=== PATIENT | male | born 1950 | race Caucasian/White ===

== ENCOUNTER 2018-03-29 16:20 | Inpatient (IN) | payer MEDICARE ==
[2018-03-29 19:09] VITALS: BMI 24.0
[2018-03-29] MEDS ORDERED: Oxycodone/Acetaminophen 5/325 mg Tab PO PRN (22:07)
[2018-03-29] MEDS ORDERED: Patient's Own Med (Atorvastatin [Lipitor] 80 MG) PO SCH (22:30)
[2018-03-29] MEDS ORDERED: Albuterol-Ipratrop 3 mg / 0.5 (3 ml) UD INH PRN (22:33)
[2018-03-29] MEDS: Insulin Lispro (humaLOG) 100 Units/ml Inj SC SCH (23:45)
[2018-03-30] MEDS ORDERED: Albuterol-Ipratrop 3 mg / 0.5 (3 ml) UD INH PRN (04:39)
[2018-03-30] MEDS: Oxycodone/Acetaminophen 5/325 mg Tab PO PRN (04:47)
[2018-03-30 06:22] LABS: HEMOGLOBIN 12.4 g/dL (12.0-18.0); MEAN CELL VOLUME 87.7 fl (80.0-94.0); MEAN CORPUSCULAR HEMOGLOBIN 29.8 pg (27.0-31.0); MEAN CORPUSCULAR HGB CONC 33.9 g/dL (33.0-37.0); RBC 4.17 Mil/uL (4.40-5.90); RED CELL DISTRIBUTION WIDTH 15.1 % (11.5-14.5); WHITE BLOOD COUNT 12.4 K/uL (4.8-10.8)
[2018-03-30 06:35] LABS: ALBUMIN 3.4 g/dL (3.5-5.0); ALT/SGPT 94 U/L (21-72); AST/SGOT 78 U/L (17-59); BLOOD UREA NITROGEN 23 mg/dl (9-20); GFR NON-AFRICAN AMERICAN > 60; HDL CHOLESTEROL 20 MG/DL (30-70)
[2018-03-30 06:46] LABS: LDL CHOLESTEROL 49 mg/dL (0-129)
[2018-03-30] MEDS: Insulin Lispro (humaLOG) 100 Units/ml Inj SC SCH ×2 (07:18→12:05)
[2018-03-30] MEDS: Pantoprazole 40 mg EC Tab PO SCH (07:22)
[2018-03-30] MEDS ORDERED: Patient's Own Med (Multivitamin [Daily Vite] 1 TAB) PO SCH (09:00)
[2018-03-30] MEDS: Multivitamin With Minerals Tab PO SCH (09:14)
--- NOTE | 2018-03-30 13:52 | PCM.OPOC ---
Physiatry Overall Plan of Care - Overall Plan of Care Estimated Length of Stay in Weeks: 2 Rehab Impairment: Mobility, Gait, Balance, Coordination Etiologic Diagnosis: Cerebrovascular Accident (and CABG x3 and PPM) Rehab/Medical Prognosis: Fair - Anticipated Interventions Physical Therapy:: Yes Occupational Therapy:: Yes Recreational Therapy:: Yes - Therapy Goals Bed Mobility: Supervision Ambulation: Supervision Functional Positional Changes:: Supervision - Discharge Plan Identification of Barriers to Discharge: Home Situation Discharge Destination: Home
--- NOTE | 2018-03-30 13:54 | CP.PCM.CON ---
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 acute rehab following an admission with chest pain. [place] [facility] developed right LE weakness and imaging revealed multiple infarcts. Also noted was a liver mass which will need to be evaluated as an outpatient after therapies. He is right hand dominant and was previously independent. Supportive family. Was a smoker Review of Systems - Constitutional Constitutional: absent: Anorexia, Chills - EENT Eyes: absent: Change in Vision Ears: absent: Ear Discharge, Ear Pain Nose/Mouth/Throat: absent: Nasal Congestion - Cardiovascular Cardiovascular: Chest Pain (from surgery) - Respiratory Respiratory: absent: Dyspnea - Gastrointestinal Gastrointestinal: absent: Belching, Constipation - Musculoskeletal Musculoskeletal: absent: Back Pain - Integumentary Integumentary: absent: Bleeding Lesions - Neurological Neurological: absent: Abnormal Movements, Disequilibrium, Headaches, Radicular Pain, Vertigo - Psychiatric Psychiatric: absent: Anxiety Past Patient History - Past Medical History & Family History Past Medical History?: Yes - Past Social History Smoking Status: Light Smoker < 10 Cigarettes Daily Home Situation {Lives}: With Family (20 steps) - CARDIAC Hx Cardiac Disorders: Yes Hx Hypertension: Yes Other/Comment: hyperlipidemia - PULMONARY Hx Respiratory Disorders: No - NEUROLOGICAL Hx Neurological Disorder: Yes HX Cerebrovascular Accident: Yes - HEENT Hx HEENT Problems: Yes Other/Comment: uses eyeglasses for reading - RENAL Hx Chronic Kidney Disease: No - ENDOCRINE/METABOLIC Hx Endocrine Disorders: Yes Other/Comment: DM type 2-Borderline- just found out in [facility] - HEMATOLOGICAL/ONCOLOGICAL Hx Blood Disorders: No Hx AIDS: No Hx Human Immunodeficiency Virus (HIV): No - INTEGUMENTARY Hx Dermatological Problems: No - MUSCULOSKELETAL/RHEUMATOLOGICAL Hx Musculoskeletal Disorders: No Hx Falls: No - GASTROINTESTINAL Hx Gastrointestinal Disorders: Yes Other/Comment: Liver Mass Lesion(unclear etiology)-identified in [facility] on Abdominal Ultrasound - GENITOURINARY/GYNECOLOGICAL Hx Genitourinary Disorders: No - PSYCHIATRIC Hx Psychophysiologic Disorder: No Hx Substance Use: No - SURGICAL HISTORY Hx Surgeries: Yes Hx Cholecystectomy: Yes (2012) Other/Comment: pacemaker insertion-03/25/2018. extubated 03/20/2018 - ANESTHESIA Hx Anesthesia: Yes Hx Anesthesia Reactions: No Hx Malignant Hyperthermia: No Meds Allergies/Adverse Reactions: Allergies Allergy/AdvReac Type Severity Reaction Status Date / Time No Known Allergies Allergy Verified 03/29/18 16:54 - Medications Medications: Current Medications Acetaminophen (Tylenol 325mg Tab) 650 mg PO Q6 PRN PRN Reason: pain,scale 4-6 Albuterol/Ipratropium (Duoneb 3 Mg/0.5 Mg (3 Ml) Ud) 3 ml INH RQ6 PRN PRN Reason: forshortnessof breath/wheezing Apixaban (Eliquis) 5 mg PO BID [facility] PRN Reason: Protocol Last Admin: 03/30/18 09:13 Dose: 5 mg Ascorbic Acid (Vitamin C 500 Mg Tab) 500 mg PO BID [facility] Last Admin: 03/30/18 09:14 Dose: 500 mg Aspirin (Ecotrin) 81 mg PO DAILY [facility] Last Admin: 03/30/18 09:13 Dose: 81 mg Atorvastatin Calcium (Lipitor) 80 mg PO HS [facility] Last Admin: 03/29/18 23:13 Dose: 80 mg Bisacodyl (Dulcolax) 10 mg RC DAILY PRN PRN Reason: Constipation Docusate Sodium (Colace) 100 mg PO BID [facility] Levothyroxine Sodium (Synthroid) 50 mcg PO DAILY@0630 [facility] Metoprolol Tartrate (Lopressor) 50 mg PO Q12 [facility] Last Admin: 03/30/18 09:14 Dose: 50 mg Multivitamins/Minerals (Therapeutic-M Tab) 1 tab PO DAILY [facility] Last Admin: 03/30/18 09:14 Dose: 1 tab Oxycodone/Acetaminophen (Percocet 5/325 Mg Tab) 1 tab PO Q6 PRN PRN Reason: pain scale 7-10 Stop: 04/01/18 22:08 Last Admin: 03/30/18 04:47 Dose: 1 tab Pantoprazole Sodium (Protonix Ec Tab) 40 mg PO 0630 [facility] Last Admin: 03/30/18 07:22 Dose: 40 mg Physical Exam - Constitutional Appears: Non-toxic, No Acute Distress - Head Exam Head Exam: ATRAUMATIC, NORMAL INSPECTION, NORMOCEPHALIC - Eye Exam Eye Exam: EOMI - ENT Exam ENT Exam: Mucous Membranes Moist - Respiratory Exam Respiratory Exam: Chest Wall Tenderness (sternal incision CDI with drain sites not approximated), NORMAL BREATHING PATTERN - Cardiovascular Exam Cardiovascular Exam: REGULAR RHYTHM - GI/Abdominal Exam GI & Abdominal Exam: absent: Distended, Firm - Extremities Exam Extremities exam: Negative for: calf tenderness - Neurological Exam Neurological exam: Alert, CN II-XII Intact, Oriented x3 - Psychiatric Exam Psychiatric exam: Normal Affect, Normal Mood - Skin Skin Exam: Dry (except lower drain sites of CABG the most leftward having depth and some slough) Results - Vital Signs Recent Vital Signs: Last Vital Signs Temp 96.3 F L 03/30/18 07:40 Pulse 66 03/30/18 09:14 Resp 18 03/30/18 07:40 BP 130/78 03/30/18 09:14 Pulse Ox 98 03/30/18 07:40 - Labs Result Diagrams: 03/30/18 05:20 03/30/18 05:20 Labs: Laboratory Results - last 24 hr 03/29/18 03/30/18 03/30/18 22:07 05:20 05:20 WBC 12.4 H RBC 4.17 L Hgb 12.4 Hct 36.6 MCV 87.7 MCH 29.8 MCHC 33.9 RDW 15.1 H Plt Count 290 Sodium 138 Potassium 4.3 Chloride 102 Carbon Dioxide 25 Anion Gap 15 BUN 23 H Creatinine 1.1 Est GFR ( Amer) > 60 Est GFR (Non-Af Amer) > 60 POC Glucose (mg/dL) 104 Random Glucose 96 Calcium 9.0 Total Bilirubin 0.9 AST 78 H D ALT 94 H Alkaline Phosphatase 139 H D Total Protein 6.9 Albumin 3.4 L Globulin 3.4 Albumin/Globulin Ratio 1.0 Triglycerides 154 H Cholesterol 109 LDL Cholesterol Direct 49 HDL Cholesterol 20 L Vitamin B12 602 Free T4 TSH 3rd Generation 17.50 H 03/30/18 03/30/18 03/30/18 06:59 11:08 11:10 WBC RBC Hgb Hct MCV MCH MCHC RDW Plt Count Sodium Potassium Chloride Carbon Dioxide Anion Gap BUN Creatinine Est GFR ( Amer) Est GFR (Non-Af Amer) POC Glucose (mg/dL) 106 133 H Random Glucose Calcium Total Bilirubin AST ALT Alkaline Phosphatase Total Protein Albumin Globulin Albumin/Globulin Ratio Triglycerides Cholesterol LDL Cholesterol Direct HDL Cholesterol Vitamin B12 Free T4 0.97 TSH 3rd Generation Assessment & Plan - Assessment and Plan (Free Text) Assessment: left CVA minimal residual at this point right hand dominant silvadene to the drain sites PT/OT to help with safe and appropriate d/c
--- NOTE | 2018-03-30 19:25 | CP.PCM.HP ---
Past Patient History - Past Medical History & Family History Past Medical History?: Yes - Past Social History Smoking Status: Light Smoker < 10 Cigarettes Daily Home Situation {Lives}: With Family (20 steps) - CARDIAC Hx Cardiac Disorders: Yes Hx Hypercholesterolemia: Yes Hx Hypertension: Yes - PULMONARY Hx Respiratory Disorders: No - NEUROLOGICAL HX Cerebrovascular Accident: Yes - HEENT Hx HEENT Problems: Yes Other/Comment: uses eyeglasses for reading - RENAL Hx Chronic Kidney Disease: No - ENDOCRINE/METABOLIC Hx Endocrine Disorders: Yes Other/Comment: DM type 2-Borderline- just found out in [facility] - HEMATOLOGICAL/ONCOLOGICAL Hx Blood Disorders: No Hx AIDS: No Hx Human Immunodeficiency Virus (HIV): No - INTEGUMENTARY Hx Dermatological Problems: No - MUSCULOSKELETAL/RHEUMATOLOGICAL Hx Musculoskeletal Disorders: No Hx Falls: No - GASTROINTESTINAL Hx Gastrointestinal Disorders: Yes Other/Comment: Liver Mass Lesion(unclear etiology)-identified in [facility] on Abdominal Ultrasound - GENITOURINARY/GYNECOLOGICAL Hx Genitourinary Disorders: No - PSYCHIATRIC Hx Psychophysiologic Disorder: No Hx Substance Use: No - SURGICAL HISTORY Hx Surgeries: Yes Hx Cholecystectomy: Yes (2012) Other/Comment: pacemaker insertion-03/25/2018. extubated 03/20/2018 - ANESTHESIA Hx Anesthesia: Yes Hx Anesthesia Reactions: No Hx Malignant Hyperthermia: No Meds Allergies/Adverse Reactions: Allergies Allergy/AdvReac Type Severity Reaction Status Date / Time No Known Allergies Allergy Verified 03/29/18 16:54 Results - Vital Signs Recent Vital Signs: Last Vital Signs Temp 96.3 F L 03/30/18 07:40 Pulse 78 03/30/18 16:11 Resp 18 03/30/18 07:40 BP 130/78 03/30/18 09:14 Pulse Ox 98 03/30/18 16:11 - Labs Result Diagrams: 03/30/18 05:20 03/30/18 05:20 Labs: Laboratory Results - last 24 hr 03/29/18 03/30/18 03/30/18 22:07 05:20 05:20 WBC 12.4 H RBC 4.17 L Hgb 12.4 Hct 36.6 MCV 87.7 MCH 29.8 MCHC 33.9 RDW 15.1 H Plt Count 290 Sodium 138 Potassium 4.3 Chloride 102 Carbon Dioxide 25 Anion Gap 15 BUN 23 H Creatinine 1.1 Est GFR ( Amer) > 60 Est GFR (Non-Af Amer) > 60 POC Glucose (mg/dL) 104 Random Glucose 96 Calcium 9.0 Total Bilirubin 0.9 AST 78 H D ALT 94 H Alkaline Phosphatase 139 H D Total Protein 6.9 Albumin 3.4 L Globulin 3.4 Albumin/Globulin Ratio 1.0 Triglycerides 154 H Cholesterol 109 LDL Cholesterol Direct 49 HDL Cholesterol 20 L Vitamin B12 602 Free T4 Free T3 pg/mL TSH 3rd Generation 17.50 H 03/30/18 03/30/18 03/30/18 06:59 10:42 11:08 WBC RBC Hgb Hct MCV MCH MCHC RDW Plt Count Sodium Potassium Chloride Carbon Dioxide Anion Gap BUN Creatinine Est GFR ( Amer) Est GFR (Non-Af Amer) POC Glucose (mg/dL) 106 133 H Random Glucose Calcium Total Bilirubin AST ALT Alkaline Phosphatase Total Protein Albumin Globulin Albumin/Globulin Ratio Triglycerides Cholesterol LDL Cholesterol Direct HDL Cholesterol Vitamin B12 Free T4 Free T3 pg/mL 3.33 TSH 3rd Generation 03/30/18 03/30/18 11:10 16:31 WBC RBC Hgb Hct MCV MCH MCHC RDW Plt Count Sodium Potassium Chloride Carbon Dioxide Anion Gap BUN Creatinine Est GFR ( Amer) Est GFR (Non-Af Amer) POC Glucose (mg/dL) 111 H Random Glucose Calcium Total Bilirubin AST ALT Alkaline Phosphatase Total Protein Albumin Globulin Albumin/Globulin Ratio Triglycerides Cholesterol LDL Cholesterol Direct HDL Cholesterol Vitamin B12 Free T4 0.97 Free T3 pg/mL TSH 3rd Generation
[2018-03-31] MEDS: Oxycodone/Acetaminophen 5/325 mg Tab PO PRN (02:16)
[2018-03-31] MEDS: Pantoprazole 40 mg EC Tab PO SCH (06:26)
[2018-03-31] MEDS: Levothyroxine 50 MCG TAB PO SCH (06:26)
[2018-03-31] MEDS: Silver Sulfadiazine 1% Cream (20 gm) TOP SCH (06:26)
[2018-03-31] MEDS: Multivitamin With Minerals Tab PO SCH (09:02)
--- NOTE | 2018-03-31 12:08 | PSY.TMCNF ---
Nursing - Vital Signs Vital Signs (Last 8 hours): Vital Signs 03/31/18 03/31/18 03/31/18 08:48 09:00 09:04 Temperature 98.0 F Pulse Rate 85 82 78 Respiratory 20 Rate Blood Pressure 120/78 120/78 O2 Sat by Pulse 96 98 Oximetry Pain: 5 - Medications/Other Issues Comment: To follow as per nutrition protocol - Bladder Management Bladder Pattern: Normal Voiding Method: Urinal - Bowel Management Bowel Pattern: Normal - Goals/Time Frame Comments: Pt was seen awake and alert sitting in his wheelchair in his room. Pt agreeable to visit. [employer] video translation utilized, Guilherme, #[id number]. Pt was able to identify his leisure interests as pt reported he enjoys drawing, painting, listening to music particularly salsa, and cooking. Pt reported that he is hard of hearing in R ear, never wore hearing aid. Pt also reported that he noticed his speech is slurred although throughout discussion, demonstrated intelligible speech. Pt demonstrated on how to utilize [employer] system for music listening. Pt verbalized understanding of purpose and benefits of recreation therapy. Physical Therapy - Bed Mobility Bed Mobility: Verbal Cues, Moderate Assistance - Transfers Wheelchair to Mat: Verbal Cues, Moderate Assistance Sit to Stand: Verbal Cues, Minimal Assistance - Ambulation Level of Assistance: Minimal Assistance Distance (ft.): 30 - Stair Negotiation Stairs: Level of Assistance: Verbal Cues, Moderate Assistance Number of Stairs: 2 Handrails: Bilateral - Standing Balance Static Stand: Minimal Assistance Dynamic Stand: Moderate Assistance - Pain Pain (assessed during therapy session): 3 Management Techniques: Position Change Comment: intermittent pain chest at inscision site - Insight/Carryover Insight/Carryover: Good - Patient/Family Education Comment: Sternal precautions, CVA recovery, safety - Assessment/Plan Assessment: patient is a 68 yo male s/p acute CVA and CABG. PRECAUTIONS: STERNAL PRECAUTIONS, FALLS, SAFETY AWARNENESS. patient presents with impaired strength on RLE, unsteadiness on feet, impaired dynamic standing balance , impaired dynamic safety, impaired FM coordination/dexterity impacting pts ability to complete self care routine safely and effectively. reccommned cont skilled IP OT services to maximize pt's functional I - Goals Timeframe: 3 weeks Goals: MOD I TRANSFERS. MOD I UB/LB SELF CARE. MOD I LIGHT HOMEMGMT TASKS. IMPROVE RUE DEXTERITY/COORDINATION. MOD I SHOWER TRANSFER - Provider Therapist: [email or web address] License Number: [id number] Occupational Therapy - Arousal/Attention/Orientation Patient Orientation: Person, Place, Time, Appropriate to Age, Appropriate to Situation - ADL/IADL Self Feeding: Set-up Help Grooming: Set-up Help Dressing-Upper Extremity: Supervision, Verbal Cues Dressing-Lower Extremity: Minimal Assistance, Moderate Assistance - Sitting Balance Static Sitting: Supervision Dynamic Sitting: Requires supervision, Contact Guard Assist - Transfers Wheelchair to Bed Transfers: Minimal Assistance, Moderate Assistance Toilet Transfers: Minimal Assistance, Moderate Assistance - Wheelchair Management Level of Assistance: Supervision - Upper Extremity Status Right Upper Extremity Comment: WFL Left Upper Extremity Comment: WFL - Pain Pain (assessed during therapy session): 3 Alleviating Techniques: Position Change Comment: intermittent pain chest at inscision site - Insight/Carryover Insight/Carryover: Good - Patient/Family Education Comment: Sternal precautions, CVA recovery, safety - Assessment/Plan Assessment: patient is a 68 yo male s/p acute CVA and CABG. PRECAUTIONS: STERNAL PRECAUTIONS, FALLS, SAFETY AWARNENESS. patient presents with impaired strength on RLE, unsteadiness on feet, impaired dynamic standing balance , impaired dynamic safety, impaired FM coordination/dexterity impacting pts ability to complete self care routine safely and effectively. reccommned cont skilled IP OT services to maximize pt's functional I - Goals Timeframe: 3 weeks Goals: MOD I TRANSFERS. MOD I UB/LB SELF CARE. MOD I LIGHT HOMEMGMT TASKS. IMPROVE RUE DEXTERITY/COORDINATION. MOD I SHOWER TRANSFER - Provider Therapist: ELIAN Hutchins/Curtis License Number: [id number] Speech Therapy - Consult Information Patient on Program: Yes Medical Diagnosis: s/p CABG with acute CVA Treatment Diagnosis: moderate dysarthria - Assessment Speech/Articulation Impairment: Moderate - Plan Assessment: patient is a 68 yo male s/p acute CVA and CABG. PRECAUTIONS: STERNAL PRECAUTIONS, FALLS, SAFETY AWARNENESS. patient presents with impaired strength on RLE, unsteadiness on feet, impaired dynamic standing balance , impaired dynamic safety, impaired FM coordination/dexterity impacting pts ability to complete self care routine safely and effectively. reccommned cont skilled IP OT services to maximize pt's functional I - Provider Therapist: Vilma Cardoso License Number: [id number] Recreational Therapy - Participation Participation: Participates in Individual and/or Group Sessions - Attendance Attendance: 3-5 times per week - Activities Leisure Activities: Television - Socialization Level of Socialization: Initiates/interacts freely with care givers and peer - Assessment Assessment/Plan: patient is a 68 yo male s/p acute CVA and CABG. PRECAUTIONS: STERNAL PRECAUTIONS, FALLS, SAFETY AWARNENESS. patient presents with impaired strength on RLE, unsteadiness on feet, impaired dynamic standing balance , impaired dynamic safety, impaired FM coordination/dexterity impacting pts ability to complete self care routine safely and effectively. reccommned cont skilled IP OT services to maximize pt's functional I - Provider Therapist: Frances Temple, [employer]PRESENTATIVE #[id number] Nutrition - Current Diet Current Diet/ Supplement/ Feedings: 2 gram Na low fat/low cholesterol thin liquids - Appetite Percent Meal Consumed: 75-100% - Assessment/Goals/Time Frame Assessment/Goals/Time Frame: To follow as per nutrition protocol - Provider Provider: Marge Aquino RD Rehabilitation Plan - Treatment Plan Treatment Plan: Physical Therapy, Occupational Therapy, Speech, Dietary, Patient /Family Education - Discharge Plan Discharge to: Home
--- NOTE | 2018-03-31 12:14 | CP.PCM.PN ---
Subjective - Date & Time of Evaluation Date of Evaluation: 03/31/18 Time of Evaluation: 12:13 - Subjective Subjective: Patient seen in the room although has fair strength in the right LE in discussion with PT he has significant functional deficits with the use of the right LE He denies pain at this point in the LE some chest pain related to the PPM but tolerable denies sob or fever and no light-headedness continue current care Objective - Vital Signs/Intake and Output Vital Signs (last 24 hours): Temp Pulse Resp BP Pulse Ox 98.0 F 78 20 120/78 98 03/31/18 09:00 03/31/18 09:04 03/31/18 09:00 03/31/18 09:04 03/31/18 09:00 - Medications Medications: Current Medications Acetaminophen (Tylenol 325mg Tab) 650 mg PO Q6 PRN PRN Reason: pain,scale 4-6 Last Admin: 03/31/18 11:15 Dose: 650 mg Albuterol/Ipratropium (Duoneb 3 Mg/0.5 Mg (3 Ml) Ud) 3 ml INH RQ6 PRN PRN Reason: forshortnessof breath/wheezing Apixaban (Eliquis) 5 mg PO BID [facility] PRN Reason: Protocol Last Admin: 03/31/18 09:02 Dose: 5 mg Ascorbic Acid (Vitamin C 500 Mg Tab) 500 mg PO BID [facility] Last Admin: 03/31/18 09:02 Dose: 500 mg Aspirin (Ecotrin) 81 mg PO DAILY [facility] Last Admin: 03/31/18 09:03 Dose: 81 mg Atorvastatin Calcium (Lipitor) 80 mg PO HS [facility] Last Admin: 03/30/18 21:05 Dose: 80 mg Bisacodyl (Dulcolax) 10 mg RC DAILY PRN PRN Reason: Constipation Docusate Sodium (Colace) 100 mg PO BID [facility] Last Admin: 03/31/18 09:03 Dose: 100 mg Levothyroxine Sodium (Synthroid) 50 mcg PO DAILY@0630 [facility] Last Admin: 03/31/18 06:26 Dose: 50 mcg Metoprolol Tartrate (Lopressor) 50 mg PO Q12 [facility] Last Admin: 03/31/18 09:04 Dose: 50 mg Multivitamins/Minerals (Therapeutic-M Tab) 1 tab PO DAILY [facility] Last Admin: 07/11/18 09:02 Dose: 1 tab Oxycodone/Acetaminophen (Percocet 5/325 Mg Tab) 1 tab PO Q6 PRN PRN Reason: pain scale 7-10 Stop: 04/01/18 22:08 Last Admin: 03/31/18 02:16 Dose: 1 tab Pantoprazole Sodium (Protonix Ec Tab) 40 mg PO 0630 [facility] Last Admin: 03/31/18 06:26 Dose: 40 mg Sennosides (Senokot Tab) 17.2 mg PO [facility] Silver Sulfadiazine (Silvadene 1% 20 Gm) 1 ea TOP 0600 [facility] Last Admin: 03/31/18 06:26 Dose: 1 applic - Labs Labs: 03/30/18 05:20 03/30/18 05:20
[2018-04-01] MEDS: Levothyroxine 50 MCG TAB PO SCH (05:54)
[2018-04-01] MEDS: Pantoprazole 40 mg EC Tab PO SCH (05:54)
[2018-04-01] MEDS: Silver Sulfadiazine 1% Cream (20 gm) TOP SCH (05:56)
--- NOTE | 2018-04-01 08:46 | CP.PCM.PN ---
Subjective - Date & Time of Evaluation Date of Evaluation: 03/31/18 Time of Evaluation: 15:30 Objective - Vital Signs/Intake and Output Vital Signs (last 24 hours): Temp Pulse Resp BP Pulse Ox 97.6 F 69 20 140/69 99 04/01/18 07:54 04/01/18 07:54 04/01/18 07:54 04/01/18 07:54 04/01/18 07:54 - Medications Medications: Current Medications Acetaminophen (Tylenol 325mg Tab) 650 mg PO Q6 PRN PRN Reason: pain,scale 4-6 Last Admin: 04/01/18 05:54 Dose: 650 mg Albuterol/Ipratropium (Duoneb 3 Mg/0.5 Mg (3 Ml) Ud) 3 ml INH RQ6 PRN PRN Reason: forshortnessof breath/wheezing Apixaban (Eliquis) 5 mg PO BID [facility] PRN Reason: Protocol Last Admin: 03/31/18 16:55 Dose: 5 mg Ascorbic Acid (Vitamin C 500 Mg Tab) 500 mg PO BID [facility] Last Admin: 03/31/18 16:55 Dose: 500 mg Aspirin (Ecotrin) 81 mg PO DAILY [facility] Last Admin: 03/31/18 09:03 Dose: 81 mg Atorvastatin Calcium (Lipitor) 80 mg PO HS [facility] Last Admin: 03/31/18 21:21 Dose: 80 mg Bisacodyl (Dulcolax) 10 mg RC DAILY PRN PRN Reason: Constipation Docusate Sodium (Colace) 100 mg PO BID [facility] Last Admin: 03/31/18 16:53 Dose: Not Given Levothyroxine Sodium (Synthroid) 50 mcg PO DAILY@0630 [facility] Last Admin: 04/01/18 05:54 Dose: 50 mcg Metoprolol Tartrate (Lopressor) 50 mg PO Q12 [facility] Last Admin: 03/31/18 21:21 Dose: 50 mg Multivitamins/Minerals (Therapeutic-M Tab) 1 tab PO DAILY [facility] Last Admin: 03/31/18 09:02 Dose: 1 tab Oxycodone/Acetaminophen (Percocet 5/325 Mg Tab) 1 tab PO Q6 PRN PRN Reason: pain scale 7-10 Stop: 04/01/18 22:08 Last Admin: 03/31/18 02:16 Dose: 1 tab Pantoprazole Sodium (Protonix Ec Tab) 40 mg PO 0630 [facility] Last Admin: 04/01/18 05:54 Dose: 40 mg Sennosides (Senokot Tab) 17.2 mg PO HS [facility] Last Admin: 03/31/18 21:22 Dose: 17.2 mg Silver Sulfadiazine (Silvadene 1% 20 Gm) 1 ea TOP 0600 [facility] Last Admin: 04/01/18 05:56 Dose: 1 applic - Labs Labs: 03/30/18 05:20 03/30/18 05:20
[2018-04-01] MEDS: Multivitamin With Minerals Tab PO SCH (08:47)
[2018-04-01] MEDS: Oxycodone/Acetaminophen 5/325 mg Tab PO PRN (15:55)
--- NOTE | 2018-04-01 22:35 | CP.PCM.PN ---
Subjective - Date & Time of Evaluation Date of Evaluation: 04/01/18 Time of Evaluation: 17:10 Objective - Vital Signs/Intake and Output Vital Signs (last 24 hours): Temp Pulse Resp BP Pulse Ox 97.9 F 84 20 152/87 H 98 04/01/18 20:15 04/01/18 21:25 04/01/18 20:15 04/01/18 21:25 04/01/18 20:15 - Medications Medications: Current Medications Acetaminophen (Tylenol 325mg Tab) 650 mg PO Q6 PRN PRN Reason: pain,scale 4-6 Last Admin: 04/01/18 13:46 Dose: 650 mg Albuterol/Ipratropium (Duoneb 3 Mg/0.5 Mg (3 Ml) Ud) 3 ml INH RQ6 PRN PRN Reason: forshortnessof breath/wheezing Apixaban (Eliquis) 5 mg PO BID [facility] PRN Reason: Protocol Last Admin: 04/01/18 16:00 Dose: 5 mg Ascorbic Acid (Vitamin C 500 Mg Tab) 500 mg PO BID [facility] Last Admin: 04/01/18 16:00 Dose: 500 mg Aspirin (Ecotrin) 81 mg PO DAILY [facility] Last Admin: 04/01/18 08:48 Dose: 81 mg Atorvastatin Calcium (Lipitor) 80 mg PO HS [facility] Last Admin: 04/01/18 21:24 Dose: 80 mg Bacitracin (Bacitracin Oint) 1 applic TOP 0600 [facility] Bisacodyl (Dulcolax) 10 mg RC DAILY PRN PRN Reason: Constipation Docusate Sodium (Colace) 100 mg PO BID [facility] Last Admin: 04/01/18 16:00 Dose: 100 mg Levothyroxine Sodium (Synthroid) 50 mcg PO DAILY@0630 [facility] Last Admin: 04/01/18 05:54 Dose: 50 mcg Metoprolol Tartrate (Lopressor) 50 mg PO Q12 [facility] Last Admin: 04/01/18 21:25 Dose: 50 mg Multivitamins/Minerals (Therapeutic-M Tab) 1 tab PO DAILY [facility] Last Admin: 04/01/18 08:47 Dose: 1 tab Oxycodone/Acetaminophen (Percocet 5/325 Mg Tab) 1 tab PO Q6 PRN PRN Reason: pain scale 7-10 Stop: 04/07/18 22:08 Last Admin: 04/01/18 15:55 Dose: 1 tab Pantoprazole Sodium (Protonix Ec Tab) 40 mg PO 0630 [facility] Last Admin: 04/01/18 05:54 Dose: 40 mg Sennosides (Senokot Tab) 17.2 mg PO HS [facility] Last Admin: 04/01/18 21:25 Dose: 17.2 mg Silver Sulfadiazine (Silvadene 1% 20 Gm) 1 ea TOP 0600 [facility] Last Admin: 04/01/18 05:56 Dose: 1 applic - Labs Labs: 03/30/18 05:20 03/30/18 05:20
[2018-04-02] MEDS: Oxycodone/Acetaminophen 5/325 mg Tab PO PRN ×2 (03:01→17:00)
[2018-04-02] MEDS: Bacitracin OINT 15GM TOP SCH (06:29)
[2018-04-02] MEDS: Silver Sulfadiazine 1% Cream (20 gm) TOP SCH (06:29)
[2018-04-02] MEDS: Pantoprazole 40 mg EC Tab PO SCH (06:30)
[2018-04-02] MEDS: Levothyroxine 50 MCG TAB PO SCH (06:30)
[2018-04-02] MEDS: Multivitamin With Minerals Tab PO SCH (08:22)
--- NOTE | 2018-04-02 12:17 | CP.PCM.PN ---
Subjective - Date & Time of Evaluation Date of Evaluation: 04/02/18 Time of Evaluation: 12:16 - Subjective Subjective: Patient seen in the room and doing ok no sob/cp no joint pain stable otherwise continue current care Objective - Vital Signs/Intake and Output Vital Signs (last 24 hours): Temp Pulse Resp BP Pulse Ox 96.6 F L 73 18 124/76 99 04/02/18 07:24 04/02/18 08:22 04/02/18 07:24 04/02/18 08:22 04/02/18 07:24 - Medications Medications: Current Medications Acetaminophen (Tylenol 325mg Tab) 650 mg PO Q6 PRN PRN Reason: pain,scale 4-6 Last Admin: 04/01/18 13:46 Dose: 650 mg Albuterol/Ipratropium (Duoneb 3 Mg/0.5 Mg (3 Ml) Ud) 3 ml INH RQ6 PRN PRN Reason: forshortnessof breath/wheezing Apixaban (Eliquis) 5 mg PO BID [facility] PRN Reason: Protocol Last Admin: 04/02/18 08:22 Dose: 5 mg Ascorbic Acid (Vitamin C 500 Mg Tab) 500 mg PO BID [facility] Last Admin: 04/02/18 08:22 Dose: 500 mg Aspirin (Ecotrin) 81 mg PO DAILY [facility] Last Admin: 04/02/18 08:22 Dose: 81 mg Atorvastatin Calcium (Lipitor) 80 mg PO HS [facility] Last Admin: 04/01/18 21:24 Dose: 80 mg Bacitracin (Bacitracin Oint) 1 applic TOP 0600 [facility] Last Admin: 04/02/18 06:29 Dose: 1 applic Bisacodyl (Dulcolax) 10 mg RC DAILY PRN PRN Reason: Constipation Docusate Sodium (Colace) 100 mg PO BID [facility] Last Admin: 04/02/18 08:22 Dose: 100 mg Levothyroxine Sodium (Synthroid) 50 mcg PO DAILY@0630 [facility] Last Admin: 04/02/18 06:30 Dose: 50 mcg Metoprolol Tartrate (Lopressor) 50 mg PO Q12 [facility] Last Admin: 04/02/18 08:22 Dose: 50 mg Multivitamins/Minerals (Therapeutic-M Tab) 1 tab PO DAILY [facility] Last Admin: 04/02/18 08:22 Dose: 1 tab Oxycodone/Acetaminophen (Percocet 5/325 Mg Tab) 1 tab PO Q6 PRN PRN Reason: pain scale 7-10 Stop: 04/07/18 22:08 Last Admin: 04/02/18 03:01 Dose: 1 tab Pantoprazole Sodium (Protonix Ec Tab) 40 mg PO 0630 [facility] Last Admin: 04/02/18 06:30 Dose: 40 mg Sennosides (Senokot Tab) 17.2 mg PO HS [facility] Last Admin: 04/01/18 21:25 Dose: 17.2 mg Silver Sulfadiazine (Silvadene 1% 20 Gm) 1 ea TOP 0600 [facility] Last Admin: 04/02/18 06:29 Dose: 1 applic - Labs Labs: 03/30/18 05:20 03/30/18 05:20
--- NOTE | 2018-04-02 14:46 | CP.PCM.PN ---
Subjective - Date & Time of Evaluation Date of Evaluation: 04/02/18 Time of Evaluation: 11:10 Objective - Vital Signs/Intake and Output Vital Signs (last 24 hours): Temp Pulse Resp BP Pulse Ox 96.6 F L 73 18 124/76 99 04/02/18 07:24 04/02/18 08:22 04/02/18 07:24 04/02/18 08:22 04/02/18 07:24 - Medications Medications: Current Medications Acetaminophen (Tylenol 325mg Tab) 650 mg PO Q6 PRN PRN Reason: pain,scale 4-6 Last Admin: 04/01/18 13:46 Dose: 650 mg Albuterol/Ipratropium (Duoneb 3 Mg/0.5 Mg (3 Ml) Ud) 3 ml INH RQ6 PRN PRN Reason: forshortnessof breath/wheezing Apixaban (Eliquis) 5 mg PO BID [facility] PRN Reason: Protocol Last Admin: 04/02/18 08:22 Dose: 5 mg Ascorbic Acid (Vitamin C 500 Mg Tab) 500 mg PO BID [facility] Last Admin: 04/02/18 08:22 Dose: 500 mg Aspirin (Ecotrin) 81 mg PO DAILY [facility] Last Admin: 04/02/18 08:22 Dose: 81 mg Atorvastatin Calcium (Lipitor) 80 mg PO HS [facility] Last Admin: 04/01/18 21:24 Dose: 80 mg Bacitracin (Bacitracin Oint) 1 applic TOP 0600 [facility] Last Admin: 04/02/18 06:29 Dose: 1 applic Bisacodyl (Dulcolax) 10 mg RC DAILY PRN PRN Reason: Constipation Docusate Sodium (Colace) 100 mg PO BID [facility] Last Admin: 04/02/18 08:22 Dose: 100 mg Levothyroxine Sodium (Synthroid) 50 mcg PO DAILY@0630 [facility] Last Admin: 04/02/18 06:30 Dose: 50 mcg Metoprolol Tartrate (Lopressor) 50 mg PO Q12 [facility] Last Admin: 04/02/18 08:22 Dose: 50 mg Multivitamins/Minerals (Therapeutic-M Tab) 1 tab PO DAILY [facility] Last Admin: 04/02/18 08:22 Dose: 1 tab Oxycodone/Acetaminophen (Percocet 5/325 Mg Tab) 1 tab PO Q6 PRN PRN Reason: pain scale 7-10 Stop: 04/07/18 22:08 Last Admin: 04/02/18 03:01 Dose: 1 tab Pantoprazole Sodium (Protonix Ec Tab) 40 mg PO 0630 [facility] Last Admin: 04/02/18 06:30 Dose: 40 mg Sennosides (Senokot Tab) 17.2 mg PO HS [facility] Last Admin: 04/01/18 21:25 Dose: 17.2 mg Silver Sulfadiazine (Silvadene 1% 20 Gm) 1 ea TOP 0600 [facility] Last Admin: 04/02/18 06:29 Dose: 1 applic - Labs Labs: 03/30/18 05:20 03/30/18 05:20
[2018-04-03] MEDS: Oxycodone/Acetaminophen 5/325 mg Tab PO PRN ×3 (02:42→17:31)
[2018-04-03] MEDS: Silver Sulfadiazine 1% Cream (20 gm) TOP SCH (06:31)
[2018-04-03] MEDS: Bacitracin OINT 15GM TOP SCH (06:31)
[2018-04-03] MEDS: Pantoprazole 40 mg EC Tab PO SCH (06:31)
[2018-04-03] MEDS: Levothyroxine 50 MCG TAB PO SCH (06:31)
[2018-04-03] MEDS: Multivitamin With Minerals Tab PO SCH (08:28)
--- NOTE | 2018-04-03 16:10 | CP.PCM.PN ---
Subjective - Date & Time of Evaluation Date of Evaluation: 04/03/18 Time of Evaluation: 16:10 Objective - Vital Signs/Intake and Output Vital Signs (last 24 hours): Temp Pulse Resp BP Pulse Ox 96.8 F L 69 20 146/80 98 04/03/18 08:00 04/03/18 08:28 04/03/18 08:00 04/03/18 08:28 04/03/18 08:00 - Medications Medications: Current Medications Acetaminophen (Tylenol 325mg Tab) 650 mg PO Q6 PRN PRN Reason: pain,scale 4-6 Last Admin: 04/01/18 13:46 Dose: 650 mg Albuterol/Ipratropium (Duoneb 3 Mg/0.5 Mg (3 Ml) Ud) 3 ml INH RQ6 PRN PRN Reason: forshortnessof breath/wheezing Apixaban (Eliquis) 5 mg PO BID [facility] PRN Reason: Protocol Last Admin: 04/03/18 08:28 Dose: 5 mg Ascorbic Acid (Vitamin C 500 Mg Tab) 500 mg PO BID [facility] Last Admin: 04/03/18 08:29 Dose: 500 mg Aspirin (Ecotrin) 81 mg PO DAILY [facility] Last Admin: 04/03/18 08:28 Dose: 81 mg Atorvastatin Calcium (Lipitor) 80 mg PO HS [facility] Last Admin: 04/02/18 22:01 Dose: 80 mg Bacitracin (Bacitracin Oint) 1 applic TOP 0600 [facility] Last Admin: 04/03/18 06:31 Dose: 1 applic Bisacodyl (Dulcolax) 10 mg RC DAILY PRN PRN Reason: Constipation Docusate Sodium (Colace) 100 mg PO BID [facility] Last Admin: 04/03/18 08:28 Dose: 100 mg Levothyroxine Sodium (Synthroid) 50 mcg PO DAILY@0630 [facility] Last Admin: 04/03/18 06:31 Dose: 50 mcg Metoprolol Tartrate (Lopressor) 50 mg PO Q12 [facility] Last Admin: 04/03/18 08:28 Dose: 50 mg Multivitamins/Minerals (Therapeutic-M Tab) 1 tab PO DAILY [facility] Last Admin: 04/03/18 08:28 Dose: 1 tab Oxycodone/Acetaminophen (Percocet 5/325 Mg Tab) 1 tab PO Q6 PRN PRN Reason: pain scale 7-10 Stop: 04/07/18 22:08 Last Admin: 04/03/18 10:18 Dose: 1 tab Pantoprazole Sodium (Protonix Ec Tab) 40 mg PO 0630 [facility] Last Admin: 04/03/18 06:31 Dose: 40 mg Sennosides (Senokot Tab) 17.2 mg PO HS [facility] Last Admin: 04/02/18 22:02 Dose: 17.2 mg Silver Sulfadiazine (Silvadene 1% 20 Gm) 1 ea TOP 0600 [facility] Last Admin: 04/03/18 06:31 Dose: 1 applic - Labs Labs: 03/30/18 05:20 03/30/18 05:20
[2018-04-04] MEDS: Oxycodone/Acetaminophen 5/325 mg Tab PO PRN (04:46)
[2018-04-04] MEDS: Silver Sulfadiazine 1% Cream (20 gm) TOP SCH (06:25)
[2018-04-04] MEDS: Levothyroxine 50 MCG TAB PO SCH (06:25)
[2018-04-04] MEDS: Bacitracin OINT 15GM TOP SCH (06:25)
[2018-04-04] MEDS: Pantoprazole 40 mg EC Tab PO SCH (06:25)
[2018-04-04] MEDS: Multivitamin With Minerals Tab PO SCH (08:30)
--- NOTE | 2018-04-04 14:55 | CP.PCM.PN ---
Subjective - Date & Time of Evaluation Date of Evaluation: 04/04/18 Time of Evaluation: 13:10 Objective - Vital Signs/Intake and Output Vital Signs (last 24 hours): Temp Pulse Resp BP Pulse Ox 97.7 F 78 20 127/64 96 04/04/18 08:15 04/04/18 08:31 04/04/18 08:15 04/04/18 08:31 04/04/18 08:15 - Medications Medications: Current Medications Acetaminophen (Tylenol 325mg Tab) 650 mg PO Q6 PRN PRN Reason: pain,scale 4-6 Last Admin: 04/01/18 13:46 Dose: 650 mg Albuterol/Ipratropium (Duoneb 3 Mg/0.5 Mg (3 Ml) Ud) 3 ml INH RQ6 PRN PRN Reason: forshortnessof breath/wheezing Apixaban (Eliquis) 5 mg PO BID [facility] PRN Reason: Protocol Last Admin: 04/04/18 08:30 Dose: 5 mg Ascorbic Acid (Vitamin C 500 Mg Tab) 500 mg PO BID [facility] Last Admin: 04/04/18 08:30 Dose: 500 mg Aspirin (Ecotrin) 81 mg PO DAILY [facility] Last Admin: 04/04/18 08:30 Dose: 81 mg Atorvastatin Calcium (Lipitor) 80 mg PO HS [facility] Last Admin: 04/03/18 21:28 Dose: 80 mg Bacitracin (Bacitracin Oint) 1 applic TOP 0600 [facility] Last Admin: 04/04/18 06:25 Dose: 1 applic Bisacodyl (Dulcolax) 10 mg RC DAILY PRN PRN Reason: Constipation Docusate Sodium (Colace) 100 mg PO BID [facility] Last Admin: 04/04/18 08:30 Dose: 100 mg Levothyroxine Sodium (Synthroid) 50 mcg PO DAILY@0630 [facility] Last Admin: 04/04/18 06:25 Dose: 50 mcg Metoprolol Tartrate (Lopressor) 50 mg PO Q12 [facility] Last Admin: 04/04/18 08:31 Dose: 50 mg Multivitamins/Minerals (Therapeutic-M Tab) 1 tab PO DAILY [facility] Last Admin: 04/04/18 08:30 Dose: 1 tab Oxycodone/Acetaminophen (Percocet 5/325 Mg Tab) 1 tab PO Q6 PRN PRN Reason: pain scale 7-10 Stop: 04/07/18 22:08 Last Admin: 04/04/18 04:46 Dose: 1 tab Pantoprazole Sodium (Protonix Ec Tab) 40 mg PO 0630 [facility] Last Admin: 04/04/18 06:25 Dose: 40 mg Sennosides (Senokot Tab) 17.2 mg PO HS [facility] Last Admin: 04/03/18 21:28 Dose: 17.2 mg Silver Sulfadiazine (Silvadene 1% 20 Gm) 1 ea TOP 0600 [facility] Last Admin: 04/04/18 06:25 Dose: 1 applic - Labs Labs: 03/30/18 05:20 03/30/18 05:20
[2018-04-05] MEDS: Bacitracin OINT 15GM TOP SCH (06:12)
[2018-04-05] MEDS: Silver Sulfadiazine 1% Cream (20 gm) TOP SCH (06:12)
[2018-04-05] MEDS: Pantoprazole 40 mg EC Tab PO SCH (06:12)
[2018-04-05] MEDS: Levothyroxine 50 MCG TAB PO SCH (06:12)
[2018-04-05] MEDS: Multivitamin With Minerals Tab PO SCH (08:27)
[2018-04-05] MEDS: Oxycodone/Acetaminophen 5/325 mg Tab PO PRN (15:22)
--- NOTE | 2018-04-05 23:09 | CP.PCM.PN ---
Subjective - Date & Time of Evaluation Date of Evaluation: 04/05/18 Time of Evaluation: 10:25 Objective - Vital Signs/Intake and Output Vital Signs (last 24 hours): Temp Pulse Resp BP Pulse Ox 98.2 F 81 20 142/81 98 04/05/18 21:03 04/05/18 21:03 04/05/18 21:03 04/05/18 21:03 04/05/18 21:03 - Medications Medications: Current Medications Acetaminophen (Tylenol 325mg Tab) 650 mg PO Q6 PRN PRN Reason: pain,scale 4-6 Last Admin: 04/01/18 13:46 Dose: 650 mg Albuterol/Ipratropium (Duoneb 3 Mg/0.5 Mg (3 Ml) Ud) 3 ml INH RQ6 PRN PRN Reason: forshortnessof breath/wheezing Apixaban (Eliquis) 5 mg PO BID [facility] PRN Reason: Protocol Last Admin: 04/05/18 17:45 Dose: 5 mg Ascorbic Acid (Vitamin C 500 Mg Tab) 500 mg PO BID [facility] Last Admin: 04/05/18 17:46 Dose: 500 mg Aspirin (Ecotrin) 81 mg PO DAILY [facility] Last Admin: 04/05/18 08:27 Dose: 81 mg Atorvastatin Calcium (Lipitor) 80 mg PO HS [facility] Last Admin: 04/05/18 21:25 Dose: 80 mg Bacitracin (Bacitracin Oint) 1 applic TOP 0600 [facility] Last Admin: 04/05/18 06:12 Dose: 1 applic Bisacodyl (Dulcolax) 10 mg RC DAILY PRN PRN Reason: Constipation Docusate Sodium (Colace) 100 mg PO BID [facility] Last Admin: 04/05/18 17:45 Dose: 100 mg Levothyroxine Sodium (Synthroid) 50 mcg PO DAILY@0630 [facility] Last Admin: 04/05/18 06:12 Dose: 50 mcg Metoprolol Tartrate (Lopressor) 50 mg PO Q12 [facility] Last Admin: 04/05/18 20:43 Dose: 50 mg Multivitamins/Minerals (Therapeutic-M Tab) 1 tab PO DAILY [facility] Last Admin: 04/05/18 08:27 Dose: 1 tab Oxycodone/Acetaminophen (Percocet 5/325 Mg Tab) 1 tab PO Q6 PRN PRN Reason: pain scale 7-10 Stop: 04/07/18 22:08 Last Admin: 04/05/18 15:22 Dose: 1 tab Pantoprazole Sodium (Protonix Ec Tab) 40 mg PO 0630 [facility] Last Admin: 04/05/18 06:12 Dose: 40 mg Sennosides (Senokot Tab) 17.2 mg PO HS [facility] Last Admin: 04/05/18 21:25 Dose: 17.2 mg Silver Sulfadiazine (Silvadene 1% 20 Gm) 1 ea TOP 0600 [facility] Last Admin: 04/05/18 06:12 Dose: 1 applic - Labs Labs: 03/30/18 05:20 03/30/18 05:20
[2018-04-06] MEDS: Silver Sulfadiazine 1% Cream (20 gm) TOP SCH (06:04)
[2018-04-06] MEDS: Bacitracin OINT 15GM TOP SCH (06:04)
[2018-04-06] MEDS: Pantoprazole 40 mg EC Tab PO SCH (06:05)
[2018-04-06] MEDS: Levothyroxine 50 MCG TAB PO SCH (06:05)
[2018-04-06] MEDS: Multivitamin With Minerals Tab PO SCH (08:35)
[2018-04-06] MEDS: Oxycodone/Acetaminophen 5/325 mg Tab PO PRN (15:03)
--- NOTE | 2018-04-06 19:50 | CP.PCM.PN ---
Subjective - Date & Time of Evaluation Date of Evaluation: 04/06/18 Time of Evaluation: 07:30 - Subjective Subjective: No new complaint. Objective - Vital Signs/Intake and Output Vital Signs (last 24 hours): Temp Pulse Resp BP Pulse Ox 97.3 F L 78 20 129/69 78 L 04/06/18 09:55 04/06/18 09:55 04/06/18 09:55 04/06/18 09:55 04/06/18 09:55 - Medications Medications: Current Medications Acetaminophen (Tylenol 325mg Tab) 650 mg PO Q6 PRN PRN Reason: pain,scale 4-6 Last Admin: 04/01/18 13:46 Dose: 650 mg Albuterol/Ipratropium (Duoneb 3 Mg/0.5 Mg (3 Ml) Ud) 3 ml INH RQ6 PRN PRN Reason: forshortnessof breath/wheezing Apixaban (Eliquis) 5 mg PO BID [facility] PRN Reason: Protocol Last Admin: 04/06/18 16:53 Dose: 5 mg Ascorbic Acid (Vitamin C 500 Mg Tab) 500 mg PO BID [facility] Last Admin: 04/06/18 16:52 Dose: 500 mg Aspirin (Ecotrin) 81 mg PO DAILY [facility] Last Admin: 04/06/18 08:35 Dose: 81 mg Atorvastatin Calcium (Lipitor) 80 mg PO HS [facility] Last Admin: 04/05/18 21:25 Dose: 80 mg Bacitracin (Bacitracin Oint) 1 applic TOP 0600 [facility] Last Admin: 04/06/18 06:04 Dose: 1 applic Bisacodyl (Dulcolax) 10 mg RC DAILY PRN PRN Reason: Constipation Docusate Sodium (Colace) 100 mg PO BID [facility] Last Admin: 04/06/18 16:52 Dose: 100 mg Levothyroxine Sodium (Synthroid) 50 mcg PO DAILY@0630 [facility] Last Admin: 04/06/18 06:05 Dose: 50 mcg Metoprolol Tartrate (Lopressor) 50 mg PO Q12 [facility] Last Admin: 04/06/18 08:36 Dose: 50 mg Multivitamins/Minerals (Therapeutic-M Tab) 1 tab PO DAILY [facility] Last Admin: 04/06/18 08:35 Dose: 1 tab Oxycodone/Acetaminophen (Percocet 5/325 Mg Tab) 1 tab PO Q6 PRN PRN Reason: pain scale 7-10 Stop: 04/07/18 22:08 Last Admin: 04/06/18 15:03 Dose: 1 tab Pantoprazole Sodium (Protonix Ec Tab) 40 mg PO 0630 [facility] Last Admin: 04/06/18 06:05 Dose: 40 mg Sennosides (Senokot Tab) 17.2 mg PO HS [facility] Last Admin: 04/05/18 21:25 Dose: 17.2 mg Silver Sulfadiazine (Silvadene 1% 20 Gm) 1 ea TOP 0600 [facility] Last Admin: 04/06/18 06:04 Dose: 1 applic - Labs Labs: 03/30/18 05:20 03/30/18 05:20
[2018-04-07] MEDS: Bacitracin OINT 15GM TOP SCH (06:03)
[2018-04-07] MEDS: Levothyroxine 50 MCG TAB PO SCH (06:03)
[2018-04-07] MEDS: Pantoprazole 40 mg EC Tab PO SCH (06:03)
[2018-04-07] MEDS: Silver Sulfadiazine 1% Cream (20 gm) TOP SCH (06:03)
[2018-04-07] MEDS: Multivitamin With Minerals Tab PO SCH (08:10)
--- NOTE | 2018-04-07 13:23 | PSY.TMCNF ---
Nursing - Vital Signs Vital Signs (Last 8 hours): Vital Signs 04/07/18 04/07/18 04/07/18 08:08 08:10 11:35 Temperature 97.0 F L 97.0 F L Pulse Rate 74 74 74 Respiratory 18 20 Rate Blood Pressure 136/79 136/79 136/79 O2 Sat by Pulse 98 Oximetry Pain: 5 - Precautions: Precautions: Fall Prevention, Cardiac/Pulmonary - Medications/Other Issues Comment: Pt at moderate nutritional risk. goal: 1. Pt to consume 75-100% of meals. 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) - Skin Incision Site: midsternal, adbominal puncture sites x3, L kn Dressing Status: Clean, Dry, Intact Incision: Healing Well Incision Line Treatment: - puncture sites to abdomen cleaned with nss, silvadene and zeroform - Toileting Toileting: Minimal Assistance - Bladder Management Bladder Pattern: Normal Voiding Method: Toilet, Urinal Bladder Management: Minimal Assistance - Bowel Management Bowel Pattern: Normal Comment: LBM 04/06 Bowel Management: Minimal Assistance - Transfers Transfers: Moderate Assistance - ADL's ADL's: Moderate Assistance - Pain Management Comments: - achey pain to surgical sites and pt requests prn tyelnol mostly - Patient/Family Teaching Comments: - incisional care. - pain management. - medications - Goals/Time Frame Comments: as per multi -disciplinary team - Provider Provider: Madiha Oglesby RN Physical Therapy - Bed Mobility Bed Mobility: Verbal Cues, Minimal Assistance - Transfers Sit to Stand: Supervision, Verbal Cues, Contact Guard - Ambulation Level of Assistance: Minimal Assistance Distance (ft.): 80 Assistive Devices: Narrow base quad cane - Stair Negotiation Stairs: Level of Assistance: Minimal Assistance Number of Stairs: 10 Stairs: Assistive Devices: Left Handrail, Right Handrail - Standing Balance Static Stand: Contact Guard Assist Dynamic Stand: Minimal Assistance - Pain Management Techniques: Medication, Position Change - Insight/Carryover Insight/Carryover: Good - Patient/Family Education Comment: sternal precautions, dme/ae,, energy conservation techniques - Assessment/Plan Assessment: Pt is agreeable to participate in 1:1 and group recreation therapy sessions offered on unit. Pt has participated in card tasks and dominoes to improve R side strength and fine motor skills. Pt complete tasks with both hands and demonstrates improved direction following and arousal level. Pt participates in bingo task with peers. Pt tolerates duration of sessions and will continue to benefit from participating in recreation therapy sessions throughout stay on unit. - Goals Timeframe: 2 weeks Goals: MOD I TRANSFERS. MOD I UB/LB SELF CARE. MOD I LIGHT HOMEMGMT TASKS. IMPROVE RUE DEXTERITY/COORDINATION. MOD I SHOWER TRANSFER - Provider Therapist: Nelly Delarosa PT License Number: [id number] Occupational Therapy - Arousal/Attention/Orientation Patient Orientation: Person, Place, Time, Appropriate to Age, Appropriate to Situation - ADL/IADL Self Feeding: Set-up Help Grooming: Set-up Help Dressing-Upper Extremity: Supervision Dressing-Lower Extremity: Contact Guard Comment: will assess bathing when cleared by surgeon - Sitting Balance Static Sitting: Supervision Dynamic Sitting: Requires supervision, Contact Guard Assist - Transfers Wheelchair to Bed Transfers: Contact Guard Toilet Transfers: Contact Guard Tub Transfers: Verbal Cues, Contact Guard Comment: reinforcement: sternal precautions. reccommneding tub transfer bench for bathing - Wheelchair Management Level of Assistance: Supervision - Upper Extremity Status Right Upper Extremity Comment: WFL. slightly impaired FM coordinstion/ dexterity R hand Left Upper Extremity Comment: WFL - Pain Alleviating Techniques: Medication, Position Change - Insight/Carryover Insight/Carryover: Good - Patient/Family Education Comment: sternal precautions, dme/ae,, energy conservation techniques - Assessment/Plan Assessment: Pt is agreeable to participate in 1:1 and group recreation therapy sessions offered on unit. Pt has participated in card tasks and dominoes to improve R side strength and fine motor skills. Pt complete tasks with both hands and demonstrates improved direction following and arousal level. Pt participates in bingo task with peers. Pt tolerates duration of sessions and will continue to benefit from participating in recreation therapy sessions throughout stay on unit. - Goals Timeframe: 2 weeks Goals: MOD I TRANSFERS. MOD I UB/LB SELF CARE. MOD I LIGHT HOMEMGMT TASKS. IMPROVE RUE DEXTERITY/COORDINATION. 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 Pt has participated in card tasks and dominoes to improve R side strength and fine motor skills. Pt complete tasks with both hands and demonstrates improved direction following and arousal level. Pt participates in bingo task with peers. Pt tolerates duration of sessions and will continue to benefit from participating in recreation therapy sessions throughout stay on unit. - Provider Therapist: Vilma Cardoso License Number: [id number] Recreational Therapy - Participation Participation: Participates in Individual and/or Group Sessions - Attendance Attendance: 3-5 times per week - Activities Leisure Activities: Cards and Games - Socialization Level of Socialization: Initiates/interacts freely with care givers and peer - Diversional Time Diversional Time: watches television, listens to music - Assessment Assessment/Plan: Pt is agreeable to participate in 1:1 and group recreation therapy sessions offered on unit. Pt has participated in card tasks and dominoes to improve R side strength and fine motor skills. Pt complete tasks with both hands and demonstrates improved direction following and arousal level. Pt participates in bingo task with peers. Pt tolerates duration of sessions and will continue to benefit from participating in recreation therapy sessions throughout stay on unit. Problems Currently Limiting Participation: hard of hearing in R ear, R side weakness, decrease leisure awareness level Goals and Time Frame: Pt will be encouraged to participate in 1:1 and group recreation therapy sessions 3-5x week to improve direction following, leisure awareness level, R side weakness, and arousal level. - Provider Therapist: Frances Temple, HIDES INSPECTOR #[id number] Nutrition - Current Diet Current Diet/ Supplement/ Feedings: 2 gram Na low fat/low cholesterol diet - Appetite Percent Meal Consumed: 50-74% - Comments Comments: - incisional care. - pain management. - medications - Assessment/Goals/Time Frame Assessment/Goals/Time Frame: Pt at moderate nutritional risk. goal: 1. Pt to consume 75-100% of meals. Follow-up due on 04/06/2018 - Provider Provider: Marge Aquino RD Case Management - Psychosocial Assessment Support Systems: Lives alone - Rodger Zimmer [phone] lives next door Psychological Interventions/Needs: Pt is alert and oriented x3; Brazilian speaking Discharge Concerns: Pt has 24 stairs to negotiate Patient/Family Meeting: CM met with pt and rehab team using certified Brazilian speaking embossing toolsetter Vilma Girard Intervention/Goal/Outcome:: 1. D/C date and plan: Reteam - TBD based on progress 2. Caregiver training/education 3. DME needs 4. Follow up regarding Medicaid application - Discharge Plan Discharge Plan: Home with services Home Services: [facility] - Provider Provider: JAYCEE Gibbs, CRAS License Number: [id number] Rehabilitation Plan - Treatment Plan Treatment Plan: Physical Therapy, Occupational Therapy, Speech, Dietary, Patient /Family Education - Recommendation Recommendation: Physical Therapy, Occupational Therapy, Speech, Dietary, Patient /Family Education - Discharge Plan Discharge to: Home (25)
--- NOTE | 2018-04-07 14:49 | CP.PCM.PN ---
Subjective - Date & Time of Evaluation Date of Evaluation: 04/06/18 Time of Evaluation: 16:00 - Subjective Subjective: no acute complaints Objective - Vital Signs/Intake and Output Vital Signs (last 24 hours): Temp Pulse Resp BP Pulse Ox 97.0 F L 74 20 136/79 98 04/07/18 11:35 04/07/18 11:35 04/07/18 11:35 04/07/18 11:35 04/07/18 08:08 - Medications Medications: Current Medications Acetaminophen (Tylenol 325mg Tab) 650 mg PO Q6 PRN PRN Reason: pain,scale 4-6 Last Admin: 04/07/18 08:13 Dose: 650 mg Albuterol/Ipratropium (Duoneb 3 Mg/0.5 Mg (3 Ml) Ud) 3 ml INH RQ6 PRN PRN Reason: forshortnessof breath/wheezing Apixaban (Eliquis) 5 mg PO BID [facility] PRN Reason: Protocol Last Admin: 04/07/18 08:09 Dose: 5 mg Ascorbic Acid (Vitamin C 500 Mg Tab) 500 mg PO BID [facility] Last Admin: 04/07/18 08:11 Dose: 500 mg Aspirin (Ecotrin) 81 mg PO DAILY [facility] Last Admin: 04/07/18 08:09 Dose: 81 mg Atorvastatin Calcium (Lipitor) 80 mg PO HS [facility] Last Admin: 04/06/18 21:16 Dose: 80 mg Bacitracin (Bacitracin Oint) 1 applic TOP 0600 [facility] Last Admin: 04/07/18 06:03 Dose: 1 applic Bisacodyl (Dulcolax) 10 mg RC DAILY PRN PRN Reason: Constipation Docusate Sodium (Colace) 100 mg PO BID [facility] Last Admin: 04/07/18 08:09 Dose: 100 mg Levothyroxine Sodium (Synthroid) 50 mcg PO DAILY@0630 [facility] Last Admin: 04/07/18 06:03 Dose: 50 mcg Metoprolol Tartrate (Lopressor) 50 mg PO Q12 [facility] Last Admin: 04/07/18 08:10 Dose: 50 mg Multivitamins/Minerals (Therapeutic-M Tab) 1 tab PO DAILY [facility] Last Admin: 04/07/18 08:10 Dose: 1 tab Oxycodone/Acetaminophen (Percocet 5/325 Mg Tab) 1 tab PO Q6 PRN PRN Reason: pain scale 7-10 Stop: 04/07/18 22:08 Last Admin: 04/06/18 15:03 Dose: 1 tab Pantoprazole Sodium (Protonix Ec Tab) 40 mg PO 0630 [facility] Last Admin: 04/07/18 06:03 Dose: 40 mg Sennosides (Senokot Tab) 17.2 mg PO HS [facility] Last Admin: 04/06/18 21:16 Dose: 17.2 mg Silver Sulfadiazine (Silvadene 1% 20 Gm) 1 ea TOP 0600 [facility] Last Admin: 04/07/18 06:03 Dose: 1 applic - Labs Labs: 03/30/18 05:20 03/30/18 05:20 - Head Exam Head Exam: ATRAUMATIC, NORMAL INSPECTION, NORMOCEPHALIC - Eye Exam Eye Exam: EOMI, Normal appearance, PERRL Pupil Exam: NORMAL ACCOMODATION - ENT Exam ENT Exam: Mucous Membranes Moist, Normal Exam - Neck Exam Neck Exam: Normal Inspection - Respiratory Exam Respiratory Exam: Clear to Ausculation Bilateral, NORMAL BREATHING PATTERN - Cardiovascular Exam Cardiovascular Exam: REGULAR RHYTHM - GI/Abdominal Exam GI & Abdominal Exam: Soft, Normal Bowel Sounds - Rectal Exam Rectal Exam: NORMAL INSPECTION - Exam External exam: NORMAL EXTERNAL EXAM - Extremities Exam Extremities Exam: Full ROM, Normal Capillary Refill - Back Exam Back Exam: NORMAL INSPECTION - Neurological Exam Neurological Exam: Alert, Awake Neuro motor strength exam: Left Upper Extremity: 3, Right Upper Extremity: 3, Left Lower Extremity: 3, Right Lower Extremity: 3 - Psychiatric Exam Psychiatric exam: Normal Affect, Normal Mood - Skin Skin Exam: Dry, Intact Assessment and Plan (1) Abnormal laboratory test result Status: Acute (2) Chest pain Status: Acute (3) Syncope Assessment & Plan: plan for physical, occupational rec and speech therapy Status: Acute
--- NOTE | 2018-04-07 19:24 | PN ---
DATE: 04/07/2018 SUBJECTIVE: The patient is doing fine. No acute complaints at present. PHYSICAL EXAMINATION: VITAL SIGNS: Stable. NECK: Supple. CHEST: Symmetrical. HEART: Sounds S1 and S2. ABDOMEN: Benign. EXTREMITIES: No clubbing, cyanosis or edema. IMPRESSION: Acute cerebrovascular accident, hypertension, hyperlipidemia, liver mass lesion. PLAN: Physical therapy, occupational therapy, recreational therapy, speech therapy. Discussed discharge planning with the patient status post team conference. Discharge for 04/16/2018. Follow up with home services. Juan Jose MD Osmani
[2018-04-08] MEDS: Levothyroxine 50 MCG TAB PO SCH (06:21)
[2018-04-08] MEDS: Silver Sulfadiazine 1% Cream (20 gm) TOP SCH (06:21)
[2018-04-08] MEDS: Pantoprazole 40 mg EC Tab PO SCH (06:21)
[2018-04-08] MEDS: Bacitracin OINT 15GM TOP SCH (06:21)
[2018-04-08] MEDS: Multivitamin With Minerals Tab PO SCH (08:23)
[2018-04-09] MEDS: Silver Sulfadiazine 1% Cream (20 gm) TOP SCH (05:46)
[2018-04-09] MEDS: Bacitracin OINT 15GM TOP SCH (05:46)
[2018-04-09] MEDS: Levothyroxine 50 MCG TAB PO SCH (05:47)
[2018-04-09] MEDS: Pantoprazole 40 mg EC Tab PO SCH (05:47)
--- NOTE | 2018-04-09 07:44 | CP.PCM.PN ---
Subjective - Date & Time of Evaluation Date of Evaluation: 04/08/18 Time of Evaluation: 12:45 Objective - Vital Signs/Intake and Output Vital Signs (last 24 hours): Temp Pulse Resp BP Pulse Ox 97.4 F L 81 20 154/86 H 98 04/08/18 20:01 04/08/18 21:54 04/08/18 20:01 04/08/18 21:54 04/08/18 20:01 - Medications Medications: Current Medications Acetaminophen (Tylenol 325mg Tab) 650 mg PO Q6 PRN PRN Reason: pain,scale 4-6 Last Admin: 04/08/18 13:41 Dose: 650 mg Albuterol/Ipratropium (Duoneb 3 Mg/0.5 Mg (3 Ml) Ud) 3 ml INH RQ6 PRN PRN Reason: forshortnessof breath/wheezing Apixaban (Eliquis) 5 mg PO BID [facility] PRN Reason: Protocol Last Admin: 04/08/18 16:54 Dose: 5 mg Ascorbic Acid (Vitamin C 500 Mg Tab) 500 mg PO BID [facility] Last Admin: 04/08/18 16:54 Dose: 500 mg Aspirin (Ecotrin) 81 mg PO DAILY [facility] Last Admin: 04/08/18 08:22 Dose: 81 mg Atorvastatin Calcium (Lipitor) 80 mg PO HS [facility] Last Admin: 04/08/18 21:53 Dose: 80 mg Bacitracin (Bacitracin Oint) 1 applic TOP 0600 [facility] Last Admin: 04/09/18 05:46 Dose: 1 applic Bisacodyl (Dulcolax) 10 mg RC DAILY PRN PRN Reason: Constipation Docusate Sodium (Colace) 100 mg PO BID [facility] Last Admin: 04/08/18 16:54 Dose: 100 mg Levothyroxine Sodium (Synthroid) 50 mcg PO DAILY@0630 [facility] Last Admin: 04/09/18 05:47 Dose: 50 mcg Metoprolol Tartrate (Lopressor) 50 mg PO Q12 [facility] Last Admin: 04/08/18 21:54 Dose: 50 mg Multivitamins/Minerals (Therapeutic-M Tab) 1 tab PO DAILY [facility] Last Admin: 04/08/18 08:23 Dose: 1 tab Pantoprazole Sodium (Protonix Ec Tab) 40 mg PO 0630 [facility] Last Admin: 04/09/18 05:47 Dose: 40 mg Sennosides (Senokot Tab) 17.[address] [facility] Last Admin: 04/08/18 21:53 Dose: 17.2 mg Silver Sulfadiazine (Silvadene 1% 20 Gm) 1 ea TOP 0600 [facility] Last Admin: 04/09/18 05:46 Dose: 1 applic - Labs Labs: 03/30/18 05:20 03/30/18 05:20
--- NOTE | 2018-04-09 07:44 | CP.PCM.PN ---
Subjective - Date & Time of Evaluation Date of Evaluation: 04/07/18 Objective - Vital Signs/Intake and Output Vital Signs (last 24 hours): Temp Pulse Resp BP Pulse Ox 97.4 F L 81 20 154/86 H 98 04/08/18 20:01 04/08/18 21:54 04/08/18 20:01 04/08/18 21:54 04/08/18 20:01 - Medications Medications: Current Medications Acetaminophen (Tylenol 325mg Tab) 650 mg PO Q6 PRN PRN Reason: pain,scale 4-6 Last Admin: 04/08/18 13:41 Dose: 650 mg Albuterol/Ipratropium (Duoneb 3 Mg/0.5 Mg (3 Ml) Ud) 3 ml INH RQ6 PRN PRN Reason: forshortnessof breath/wheezing Apixaban (Eliquis) 5 mg PO BID [facility] PRN Reason: Protocol Last Admin: 04/08/18 16:54 Dose: 5 mg Ascorbic Acid (Vitamin C 500 Mg Tab) 500 mg PO BID [facility] Last Admin: 04/08/18 16:54 Dose: 500 mg Aspirin (Ecotrin) 81 mg PO DAILY [facility] Last Admin: 04/08/18 08:22 Dose: 81 mg Atorvastatin Calcium (Lipitor) 80 mg PO HS [facility] Last Admin: 04/08/18 21:53 Dose: 80 mg Bacitracin (Bacitracin Oint) 1 applic TOP 0600 [facility] Last Admin: 04/09/18 05:46 Dose: 1 applic Bisacodyl (Dulcolax) 10 mg RC DAILY PRN PRN Reason: Constipation Docusate Sodium (Colace) 100 mg PO BID [facility] Last Admin: 04/08/18 16:54 Dose: 100 mg Levothyroxine Sodium (Synthroid) 50 mcg PO DAILY@0630 [facility] Last Admin: 04/09/18 05:47 Dose: 50 mcg Metoprolol Tartrate (Lopressor) 50 mg PO Q12 [facility] Last Admin: 04/08/18 21:54 Dose: 50 mg Multivitamins/Minerals (Therapeutic-M Tab) 1 tab PO DAILY [facility] Last Admin: 04/08/18 08:23 Dose: 1 tab Pantoprazole Sodium (Protonix Ec Tab) 40 mg PO 0630 [facility] Last Admin: 04/09/18 05:47 Dose: 40 mg Sennosides (Senokot Tab) 17.2 mg PO HS [facility] Last Admin: 04/08/18 21:53 Dose: 17.2 mg Silver Sulfadiazine (Silvadene 1% 20 Gm) 1 ea TOP 0600 [facility] Last Admin: 04/09/18 05:46 Dose: 1 applic - Labs Labs: 03/30/18 05:20 03/30/18 05:20
[2018-04-09] MEDS: Multivitamin With Minerals Tab PO SCH (08:07)
--- NOTE | 2018-04-09 18:39 | CP.PCM.PN ---
Subjective - Date & Time of Evaluation Date of Evaluation: 04/09/18 Time of Evaluation: 17:15 Objective - Vital Signs/Intake and Output Vital Signs (last 24 hours): Temp Pulse Resp BP Pulse Ox 97.9 F 98 H 19 136/75 97 04/09/18 08:32 04/09/18 08:32 04/09/18 08:32 04/09/18 08:32 04/09/18 08:32 - Medications Medications: Current Medications Acetaminophen (Tylenol 325mg Tab) 650 mg PO Q6 PRN PRN Reason: pain,scale 4-6 Last Admin: 04/08/18 13:41 Dose: 650 mg Albuterol/Ipratropium (Duoneb 3 Mg/0.5 Mg (3 Ml) Ud) 3 ml INH RQ6 PRN PRN Reason: forshortnessof breath/wheezing Apixaban (Eliquis) 5 mg PO BID [facility] PRN Reason: Protocol Last Admin: 04/09/18 16:56 Dose: 5 mg Ascorbic Acid (Vitamin C 500 Mg Tab) 500 mg PO BID [facility] Last Admin: 04/09/18 16:57 Dose: 500 mg Aspirin (Ecotrin) 81 mg PO DAILY [facility] Last Admin: 04/09/18 08:07 Dose: 81 mg Atorvastatin Calcium (Lipitor) 80 mg PO HS [facility] Last Admin: 04/08/18 21:53 Dose: 80 mg Bacitracin (Bacitracin Oint) 1 applic TOP 0600 [facility] Last Admin: 04/09/18 05:46 Dose: 1 applic Bisacodyl (Dulcolax) 10 mg RC DAILY PRN PRN Reason: Constipation Docusate Sodium (Colace) 100 mg PO BID [facility] Last Admin: 04/09/18 16:57 Dose: 100 mg Levothyroxine Sodium (Synthroid) 50 mcg PO DAILY@0630 [facility] Last Admin: 04/09/18 05:47 Dose: 50 mcg Metoprolol Tartrate (Lopressor) 50 mg PO Q12 [facility] Last Admin: 04/09/18 08:08 Dose: 50 mg Multivitamins/Minerals (Therapeutic-M Tab) 1 tab PO DAILY [facility] Last Admin: 04/09/18 08:07 Dose: 1 tab Pantoprazole Sodium (Protonix Ec Tab) 40 mg PO 0630 [facility] Last Admin: 04/09/18 05:47 Dose: 40 mg Sennosides (Senokot Tab) 17.2 mg PO HS [facility] Last Admin: 04/08/18 21:53 Dose: 17.2 mg Silver Sulfadiazine (Silvadene 1% 20 Gm) 1 ea TOP 0600 [facility] Last Admin: 04/09/18 05:46 Dose: 1 applic - Labs Labs: 03/30/18 05:20 03/30/18 05:20
[2018-04-09] MEDS ORDERED: Oxycodone/Acetaminophen 5/325 mg Tab PO PRN (19:13)
[2018-04-10] MEDS: Silver Sulfadiazine 1% Cream (20 gm) TOP SCH (06:01)
[2018-04-10] MEDS: Bacitracin OINT 15GM TOP SCH (06:01)
[2018-04-10] MEDS: Pantoprazole 40 mg EC Tab PO SCH (06:01)
[2018-04-10] MEDS: Levothyroxine 50 MCG TAB PO SCH (06:01)
--- NOTE | 2018-04-10 07:41 | CP.PCM.PN ---
Subjective - Date & Time of Evaluation Date of Evaluation: 04/08/18 Time of Evaluation: 15:00 - Subjective Subjective: no acute complaints at present Objective - Vital Signs/Intake and Output Vital Signs (last 24 hours): Temp Pulse Resp BP Pulse Ox 98.2 F 87 20 154/88 H 98 04/09/18 20:55 04/09/18 20:55 04/09/18 20:55 04/09/18 20:55 04/09/18 20:55 - Medications Medications: Current Medications Acetaminophen (Tylenol 325mg Tab) 650 mg PO Q6 PRN PRN Reason: pain,scale 4-6 Last Admin: 04/08/18 13:41 Dose: 650 mg Albuterol/Ipratropium (Duoneb 3 Mg/0.5 Mg (3 Ml) Ud) 3 ml INH RQ6 PRN PRN Reason: forshortnessof breath/wheezing Apixaban (Eliquis) 5 mg PO BID [facility] PRN Reason: Protocol Last Admin: 04/09/18 16:56 Dose: 5 mg Ascorbic Acid (Vitamin C 500 Mg Tab) 500 mg PO BID [facility] Last Admin: 04/09/18 16:57 Dose: 500 mg Aspirin (Ecotrin) 81 mg PO DAILY [facility] Last Admin: 04/09/18 08:07 Dose: 81 mg Atorvastatin Calcium (Lipitor) 80 mg PO HS [facility] [place] Last Admin: 04/09/18 20:59 Dose: 80 mg Bacitracin (Bacitracin Oint) 1 applic TOP 0600 [facility] Last Admin: 04/10/18 06:01 Dose: 1 applic Bisacodyl (Dulcolax) 10 mg RC DAILY PRN PRN Reason: Constipation Docusate Sodium (Colace) 100 mg PO BID [facility] [place] Last Admin: 04/09/18 16:57 Dose: 100 mg Levothyroxine Sodium (Synthroid) 50 mcg PO DAILY@0630 [facility] [place] Last Admin: 04/10/18 06:01 Dose: 50 mcg Metoprolol Tartrate (Lopressor) 50 mg PO Q12 [facility] Last Admin: 04/09/18 20:45 Dose: 50 mg Multivitamins/Minerals (Therapeutic-M Tab) 1 tab PO DAILY [facility] Last Admin: 04/09/18 08:07 Dose: 1 tab Oxycodone/Acetaminophen (Percocet 5/325 Mg Tab) 1 tab PO Q6 PRN PRN Reason: PAIN SCALE 7-10. Stop: 04/12/18 19:14 Pantoprazole Sodium (Protonix Ec Tab) 40 mg PO 0630 [facility] [place] Last Admin: 04/10/18 06:01 Dose: 40 mg Sennosides (Senokot Tab) 17.2 mg PO HS [facility] Last Admin: 04/09/18 20:59 Dose: 17.2 mg Silver Sulfadiazine (Silvadene 1% 20 Gm) 1 ea TOP 0600 [facility] [place] Last Admin: 04/10/18 06:01 Dose: 1 applic - Labs Labs: 03/30/18 05:20 03/30/18 05:20 - Head Exam Head Exam: ATRAUMATIC, NORMAL INSPECTION, NORMOCEPHALIC - Eye Exam Eye Exam: EOMI, Normal appearance, PERRL Pupil Exam: NORMAL ACCOMODATION, PERRL - ENT Exam ENT Exam: Mucous Membranes Moist, Normal Exam - Neck Exam Neck Exam: Normal Inspection - Respiratory Exam Respiratory Exam: Clear to Ausculation Bilateral, NORMAL BREATHING PATTERN - Cardiovascular Exam Cardiovascular Exam: REGULAR RHYTHM - GI/Abdominal Exam GI & Abdominal Exam: Soft, Normal Bowel Sounds - Rectal Exam Rectal Exam: NORMAL INSPECTION - Exam External exam: NORMAL EXTERNAL EXAM - Extremities Exam Extremities Exam: Full ROM, Normal Capillary Refill, Normal Inspection - Back Exam Back Exam: NORMAL INSPECTION - Neurological Exam Neurological Exam: Alert, Awake - Psychiatric Exam Psychiatric exam: Normal Affect, Normal Mood - Skin Skin Exam: Normal Color Assessment and Plan (1) Abnormal laboratory test result Status: Acute (2) Chest pain Status: Acute (3) Syncope Assessment & Plan: plan for physical, occupational , rec therapy Status: Acute
--- NOTE | 2018-04-10 07:45 | CP.PCM.PN ---
Subjective - Date & Time of Evaluation Date of Evaluation: 04/09/18 Time of Evaluation: 12:00 - Subjective Subjective: no acute neck or back pain Objective - Vital Signs/Intake and Output Vital Signs (last 24 hours): Temp Pulse Resp BP Pulse Ox 98.2 F 87 20 154/88 H 98 04/09/18 20:55 04/09/18 20:55 04/09/18 20:55 04/09/18 20:55 04/09/18 20:55 - Medications Medications: Current Medications Acetaminophen (Tylenol 325mg Tab) 650 mg PO Q6 PRN PRN Reason: pain,scale 4-6 Last Admin: 04/08/18 13:41 Dose: 650 mg Albuterol/Ipratropium (Duoneb 3 Mg/0.5 Mg (3 Ml) Ud) 3 ml INH RQ6 PRN PRN Reason: forshortnessof breath/wheezing Apixaban (Eliquis) 5 mg PO BID [facility] PRN Reason: Protocol Last Admin: 04/09/18 16:56 Dose: 5 mg Ascorbic Acid (Vitamin C 500 Mg Tab) 500 mg PO BID [facility] Last Admin: 04/09/18 16:57 Dose: 500 mg Aspirin (Ecotrin) 81 mg PO DAILY [facility] Last Admin: 04/09/18 08:07 Dose: 81 mg Atorvastatin Calcium (Lipitor) 80 mg PO HS [facility] Last Admin: 04/09/18 20:59 Dose: 80 mg Bacitracin (Bacitracin Oint) 1 applic TOP 0600 [facility] Last Admin: 04/10/18 06:01 Dose: 1 applic Bisacodyl (Dulcolax) 10 mg RC DAILY PRN PRN Reason: Constipation Docusate Sodium (Colace) 100 mg PO BID [facility] Last Admin: 04/09/18 16:57 Dose: 100 mg Levothyroxine Sodium (Synthroid) 50 mcg PO DAILY@0630 [facility] Last Admin: 04/10/18 06:01 Dose: 50 mcg Metoprolol Tartrate (Lopressor) 50 mg PO Q12 [facility] Last Admin: 04/09/18 20:45 Dose: 50 mg Multivitamins/Minerals (Therapeutic-M Tab) 1 tab PO DAILY [facility] Last Admin: 04/09/18 08:07 Dose: 1 tab Oxycodone/Acetaminophen (Percocet 5/325 Mg Tab) 1 tab PO Q6 PRN PRN Reason: PAIN SCALE 7-10. Stop: 04/12/18 19:14 Pantoprazole Sodium (Protonix Ec Tab) 40 mg PO 0630 [facility] Last Admin: 04/10/18 06:01 Dose: 40 mg Sennosides (Senokot Tab) 17.2 mg PO HS [facility] Last Admin: 04/09/18 20:59 Dose: 17.2 mg Silver Sulfadiazine (Silvadene 1% 20 Gm) 1 ea TOP 0600 [facility] Last Admin: 04/10/18 06:01 Dose: 1 applic - Labs Labs: 03/30/18 05:20 03/30/18 05:20 - Head Exam Head Exam: ATRAUMATIC, NORMAL INSPECTION, NORMOCEPHALIC - Eye Exam Eye Exam: EOMI, Normal appearance Pupil Exam: NORMAL ACCOMODATION, PERRL - ENT Exam ENT Exam: Mucous Membranes Moist - Neck Exam Neck Exam: Normal Inspection - Respiratory Exam Respiratory Exam: NORMAL BREATHING PATTERN - Cardiovascular Exam Cardiovascular Exam: REGULAR RHYTHM - GI/Abdominal Exam GI & Abdominal Exam: Normal Bowel Sounds - Rectal Exam Rectal Exam: NORMAL INSPECTION - Extremities Exam Extremities Exam: Full ROM, Normal Capillary Refill, Normal Inspection - Back Exam Back Exam: NORMAL INSPECTION - Neurological Exam Neurological Exam: Alert, Awake Neuro motor strength exam: Left Upper Extremity: 3, Right Upper Extremity: 3, Left Lower Extremity: 3, Right Lower Extremity: 3 - Psychiatric Exam Psychiatric exam: Normal Affect, Normal Mood - Skin Skin Exam: Dry, Normal Color Assessment and Plan (1) Abnormal laboratory test result Status: Acute (2) Chest pain Status: Acute (3) Syncope Assessment & Plan: continue with discharge planning, physical, occupational, rec and speech therapy Status: Acute
[2018-04-10] MEDS: Multivitamin With Minerals Tab PO SCH (08:35)
[2018-04-11] MEDS: Levothyroxine 50 MCG TAB PO SCH (05:57)
[2018-04-11] MEDS: Silver Sulfadiazine 1% Cream (20 gm) TOP SCH (05:58)
[2018-04-11] MEDS: Bacitracin OINT 15GM TOP SCH (05:58)
[2018-04-11] MEDS: Pantoprazole 40 mg EC Tab PO SCH (05:58)
[2018-04-11] MEDS: Multivitamin With Minerals Tab PO SCH (08:14)
--- NOTE | 2018-04-11 19:38 | CP.PCM.PN ---
Subjective - Date & Time of Evaluation Date of Evaluation: 04/11/18 Time of Evaluation: 12:05 Objective - Vital Signs/Intake and Output Vital Signs (last 24 hours): Temp Pulse Resp BP Pulse Ox 97.3 F L 60 19 146/78 98 04/11/18 09:53 04/11/18 09:53 04/11/18 09:53 04/11/18 09:53 04/11/18 09:53 - Medications Medications: Current Medications Acetaminophen (Tylenol 325mg Tab) 650 mg PO Q6 PRN PRN Reason: pain,scale 4-6 Last Admin: 04/11/18 05:56 Dose: 650 mg Albuterol/Ipratropium (Duoneb 3 Mg/0.5 Mg (3 Ml) Ud) 3 ml INH RQ6 PRN PRN Reason: forshortnessof breath/wheezing Apixaban (Eliquis) 5 mg PO BID [facility] PRN Reason: Protocol Last Admin: 04/11/18 16:32 Dose: 5 mg Ascorbic Acid (Vitamin C 500 Mg Tab) 500 mg PO BID [facility] Last Admin: 04/11/18 16:32 Dose: 500 mg Aspirin (Ecotrin) 81 mg PO DAILY [facility] Last Admin: 04/11/18 08:14 Dose: 81 mg Atorvastatin Calcium (Lipitor) 80 mg PO HS [facility] Last Admin: 04/10/18 21:13 Dose: 80 mg Bacitracin (Bacitracin Oint) 1 applic TOP 0600 [facility] Last Admin: 04/11/18 05:58 Dose: 1 applic Bisacodyl (Dulcolax) 10 mg RC DAILY PRN PRN Reason: Constipation Docusate Sodium (Colace) 100 mg PO BID [facility] Last Admin: 04/11/18 16:32 Dose: 100 mg Levothyroxine Sodium (Synthroid) 50 mcg PO DAILY@0630 [facility] Last Admin: 04/11/18 05:57 Dose: 50 mcg Metoprolol Tartrate (Lopressor) 50 mg PO Q12 [facility] Last Admin: 04/11/18 08:14 Dose: 50 mg Multivitamins/Minerals (Therapeutic-M Tab) 1 tab PO DAILY [facility] Last Admin: 04/11/18 08:14 Dose: 1 tab Oxycodone/Acetaminophen (Percocet 5/325 Mg Tab) 1 tab PO Q6 PRN PRN Reason: PAIN SCALE 7-10. Stop: 04/12/18 19:14 Pantoprazole Sodium (Protonix Ec Tab) 40 mg PO 0630 [facility] Last Admin: 04/11/18 05:58 Dose: 40 mg Sennosides (Senokot Tab) 17.2 mg PO HS [facility] Last Admin: 04/10/18 21:13 Dose: 17.2 mg Silver Sulfadiazine (Silvadene 1% 20 Gm) 1 ea TOP 0600 [facility] Last Admin: 04/11/18 05:58 Dose: 1 applic - Labs Labs: 03/30/18 05:20 03/30/18 05:20
--- NOTE | 2018-04-11 19:38 | CP.PCM.PN ---
Subjective - Date & Time of Evaluation Date of Evaluation: 04/10/18 Time of Evaluation: 15:10 Objective - Vital Signs/Intake and Output Vital Signs (last 24 hours): Temp Pulse Resp BP Pulse Ox 97.3 F L 60 19 146/78 98 04/11/18 09:53 04/11/18 09:53 04/11/18 09:53 04/11/18 09:53 04/11/18 09:53 - Medications Medications: Current Medications Acetaminophen (Tylenol 325mg Tab) 650 mg PO Q6 PRN PRN Reason: pain,scale 4-6 Last Admin: 04/11/18 05:56 Dose: 650 mg Albuterol/Ipratropium (Duoneb 3 Mg/0.5 Mg (3 Ml) Ud) 3 ml INH RQ6 PRN PRN Reason: forshortnessof breath/wheezing Apixaban (Eliquis) 5 mg PO BID [facility] PRN Reason: Protocol Last Admin: 04/11/18 16:32 Dose: 5 mg Ascorbic Acid (Vitamin C 500 Mg Tab) 500 mg PO BID [facility] Last Admin: 04/11/18 16:32 Dose: 500 mg Aspirin (Ecotrin) 81 mg PO DAILY [facility] Last Admin: 04/11/18 08:14 Dose: 81 mg Atorvastatin Calcium (Lipitor) 80 mg PO HS [facility] Last Admin: 04/10/18 21:13 Dose: 80 mg Bacitracin (Bacitracin Oint) 1 applic TOP 0600 [facility] Last Admin: 04/11/18 05:58 Dose: 1 applic Bisacodyl (Dulcolax) 10 mg RC DAILY PRN PRN Reason: Constipation Docusate Sodium (Colace) 100 mg PO BID [facility] Last Admin: 04/11/18 16:32 Dose: 100 mg Levothyroxine Sodium (Synthroid) 50 mcg PO DAILY@0630 [facility] Last Admin: 04/11/18 05:57 Dose: 50 mcg Metoprolol Tartrate (Lopressor) 50 mg PO Q12 [facility] Last Admin: 04/11/18 08:14 Dose: 50 mg Multivitamins/Minerals (Therapeutic-M Tab) 1 tab PO DAILY [facility] Last Admin: 04/11/18 08:14 Dose: 1 tab Oxycodone/Acetaminophen (Percocet 5/325 Mg Tab) 1 tab PO Q6 PRN PRN Reason: PAIN SCALE 7-10. Stop: 04/12/18 19:14 Pantoprazole Sodium (Protonix Ec Tab) 40 mg PO 0630 [facility] Last Admin: 04/11/18 05:58 Dose: 40 mg Sennosides (Senokot Tab) 17.2 mg PO HS [facility] Last Admin: 04/10/18 21:13 Dose: 17.2 mg Silver Sulfadiazine (Silvadene 1% 20 Gm) 1 ea TOP 0600 [facility] Last Admin: 04/11/18 05:58 Dose: 1 applic - Labs Labs: 03/30/18 05:20 03/30/18 05:20
[2018-04-12] MEDS: Silver Sulfadiazine 1% Cream (20 gm) TOP SCH (06:11)
[2018-04-12] MEDS: Bacitracin OINT 15GM TOP SCH (06:11)
[2018-04-12] MEDS: Levothyroxine 50 MCG TAB PO SCH (06:12)
[2018-04-12] MEDS: Pantoprazole 40 mg EC Tab PO SCH (06:12)
[2018-04-12] MEDS: Multivitamin With Minerals Tab PO SCH (09:04)
[2018-04-12] MEDS ORDERED: Oxycodone/Acetaminophen 5/325 mg Tab PO PRN (17:06)
--- NOTE | 2018-04-12 23:58 | CP.PCM.PN ---
Subjective - Date & Time of Evaluation Date of Evaluation: 04/12/18 Time of Evaluation: 13:40 Objective - Vital Signs/Intake and Output Vital Signs (last 24 hours): Temp Pulse Resp BP Pulse Ox 97.2 F L 89 20 138/79 100 04/12/18 20:00 04/12/18 20:35 04/12/18 20:00 04/12/18 20:35 04/12/18 20:00 - Medications Medications: Current Medications Acetaminophen (Tylenol 325mg Tab) 650 mg PO Q6 PRN PRN Reason: pain,scale 4-6 Last Admin: 04/11/18 05:56 Dose: 650 mg Albuterol/Ipratropium (Duoneb 3 Mg/0.5 Mg (3 Ml) Ud) 3 ml INH RQ6 PRN PRN Reason: forshortnessof breath/wheezing Apixaban (Eliquis) 5 mg PO BID COUNT [facility]CLUDES [facility] PRN Reason: Protocol Last Admin: 04/12/18 17:17 Dose: 5 mg Ascorbic Acid (Vitamin C 500 Mg Tab) 500 mg PO BID COUNT [facility]CLUDES [facility] Last Admin: 04/12/18 17:17 Dose: 500 mg Aspirin (Ecotrin) 81 mg PO DAILY COUNT [facility]CLUDES [facility] Last Admin: 04/12/18 09:04 Dose: 81 mg Atorvastatin Calcium (Lipitor) 80 mg PO HS COUNT [facility]CLUD[facility] Last Admin: 04/12/18 21:33 Dose: 80 mg Bacitracin (Bacitracin Oint) 1 applic TOP 0600 [facility] Last Admin: 04/12/18 06:11 Dose: 1 applic Bisacodyl (Dulcolax) 10 mg RC DAILY PRN PRN Reason: Constipation Docusate Sodium (Colace) 100 mg PO BID COUNT [facility]CLUDES [facility] Last Admin: 04/12/18 17:17 Dose: 100 mg Levothyroxine Sodium (Synthroid) 50 mcg PO DAILY@0630 [facility] Last Admin: 04/12/18 06:12 Dose: 50 mcg Metoprolol Tartrate (Lopressor) 50 mg PO Q12 [facility] Last Admin: 04/12/18 20:35 Dose: 50 mg Multivitamins/Minerals (Therapeutic-M Tab) 1 tab PO DAILY COUNT [facility]CLUDES [facility] Last Admin: 04/12/18 09:04 Dose: 1 tab Oxycodone/Acetaminophen (Percocet 5/325 Mg Tab) 1 tab PO Q6 PRN PRN Reason: PAIN SCALE 7-10. Stop: 04/15/18 17:07 Pantoprazole Sodium (Protonix Ec Tab) 40 mg PO 0630 [facility] Last Admin: 04/12/18 06:12 Dose: 40 mg Sennosides (Senokot Tab) 17.2 mg PO HS COUNT [facility]CLUD[facility] Last Admin: 04/12/18 21:33 Dose: 17.2 mg Silver Sulfadiazine (Silvadene 1% 20 Gm) 1 ea TOP 0600 [facility] Last Admin: 04/12/18 06:11 Dose: 1 applic - Labs Labs: 03/30/18 05:20 03/30/18 05:20
[2018-04-13] MEDS: Pantoprazole 40 mg EC Tab PO SCH (05:39)
[2018-04-13] MEDS: Levothyroxine 50 MCG TAB PO SCH (05:39)
[2018-04-13] MEDS: Bacitracin OINT 15GM TOP SCH (05:39)
[2018-04-13] MEDS: Silver Sulfadiazine 1% Cream (20 gm) TOP SCH (05:40)
[2018-04-13] MEDS: Multivitamin With Minerals Tab PO SCH (08:27)
--- NOTE | 2018-04-13 22:01 | CP.PCM.PN ---
Subjective - Date & Time of Evaluation Date of Evaluation: 04/12/18 Time of Evaluation: 20:00 - Subjective Subjective: no acute complaints at present Objective - Vital Signs/Intake and Output Vital Signs (last 24 hours): Temp Pulse Resp BP Pulse Ox 97.2 F L 89 18 150/78 98 04/13/18 20:05 04/13/18 21:10 04/13/18 20:05 04/13/18 21:10 04/13/18 20:05 - Medications Medications: Current Medications Acetaminophen (Tylenol 325mg Tab) 650 mg PO Q6 PRN PRN Reason: pain,scale 4-6 Last Admin: 04/13/18 14:29 Dose: 650 mg Albuterol/Ipratropium (Duoneb 3 Mg/0.5 Mg (3 Ml) Ud) 3 ml INH RQ6 PRN PRN Reason: forshortnessof breath/wheezing Apixaban (Eliquis) 5 mg PO BID [facility] PRN Reason: Protocol Last Admin: 04/13/18 17:05 Dose: 5 mg Ascorbic Acid (Vitamin C 500 Mg Tab) 500 mg PO BID [facility] Last Admin: 04/13/18 17:06 Dose: 500 mg Aspirin (Ecotrin) 81 mg PO DAILY [facility] Last Admin: 04/13/18 08:26 Dose: 81 mg Atorvastatin Calcium (Lipitor) 80 mg PO HS [facility] Last Admin: 04/13/18 21:10 Dose: 80 mg Bacitracin (Bacitracin Oint) 1 applic TOP 0600 [facility] Last Admin: 04/13/18 05:39 Dose: 1 applic Bisacodyl (Dulcolax) 10 mg RC DAILY PRN PRN Reason: Constipation Docusate Sodium (Colace) 100 mg PO BID [facility] Last Admin: 04/13/18 17:05 Dose: 100 mg Levothyroxine Sodium (Synthroid) 50 mcg PO DAILY@0630 [facility] Last Admin: 04/13/18 05:39 Dose: 50 mcg Metoprolol Tartrate (Lopressor) 50 mg PO Q12 [facility] Last Admin: 04/13/18 21:10 Dose: 50 mg Multivitamins/Minerals (Therapeutic-M Tab) 1 tab PO DAILY [facility] Last Admin: 04/13/18 08:27 Dose: 1 tab Oxycodone/Acetaminophen (Percocet 5/325 Mg Tab) 1 tab PO Q6 PRN PRN Reason: PAIN SCALE 7-10. Stop: 04/15/18 17:07 Pantoprazole Sodium (Protonix Ec Tab) 40 mg PO 0630 [facility] Last Admin: 04/13/18 05:39 Dose: 40 mg Sennosides (Senokot Tab) 17.2 mg PO HS [facility] Last Admin: 04/13/18 21:10 Dose: 17.2 mg - Labs Labs: 03/30/18 05:20 03/30/18 05:20 - Head Exam Head Exam: ATRAUMATIC, NORMAL INSPECTION, NORMOCEPHALIC - Eye Exam Eye Exam: EOMI, Normal appearance Pupil Exam: NORMAL ACCOMODATION, PERRL - ENT Exam ENT Exam: Mucous Membranes Moist, Normal Exam - Neck Exam Neck Exam: Normal Inspection - Respiratory Exam Respiratory Exam: Clear to Ausculation Bilateral - Cardiovascular Exam Cardiovascular Exam: REGULAR RHYTHM - GI/Abdominal Exam GI & Abdominal Exam: Soft, Normal Bowel Sounds - Rectal Exam Rectal Exam: NORMAL INSPECTION - Exam External exam: NORMAL EXTERNAL EXAM - Extremities Exam Extremities Exam: Full ROM, Normal Capillary Refill, Normal Inspection - Back Exam Back Exam: NORMAL INSPECTION - Neurological Exam Neurological Exam: Alert Neuro motor strength exam: Left Upper Extremity: 3, Right Upper Extremity: 3, Left Lower Extremity: 3, Right Lower Extremity: 3 - Psychiatric Exam Psychiatric exam: Normal Affect - Skin Skin Exam: Normal Color Assessment and Plan (1) Abnormal laboratory test result Status: Acute (2) Chest pain Status: Acute (3) Syncope Assessment & Plan: plan for physical, occupational rec and speech therapy monitor ski, labs . Dc planning Status: Acute
[2018-04-14] MEDS: Pantoprazole 40 mg EC Tab PO SCH (06:00)
[2018-04-14] MEDS: Bacitracin OINT 15GM TOP SCH (06:00)
[2018-04-14] MEDS: Levothyroxine 50 MCG TAB PO SCH (06:00)
[2018-04-14] MEDS: Multivitamin With Minerals Tab PO SCH (08:40)
[2018-04-14] MEDS ORDERED: Alum-Mag Hydrox-Simethicone Susp (30 mL) PO ONE (16:06)
[2018-04-15] MEDS: Bacitracin OINT 15GM TOP SCH (06:38)
[2018-04-15] MEDS: Levothyroxine 50 MCG TAB PO SCH (06:38)
[2018-04-15] MEDS: Pantoprazole 40 mg EC Tab PO SCH (06:38)
[2018-04-15] MEDS: Multivitamin With Minerals Tab PO SCH (08:06)
[2018-04-15 08:14] VITALS: TEMP 98
--- NOTE | 2018-04-15 21:27 | PSY.TMCNF ---
Nursing - Vital Signs Vital Signs (Last 8 hours): Vital Signs 04/15/18 04/15/18 20:10 21:15 Temperature 98.0 F Pulse Rate 72 72 Respiratory 20 Rate Blood Pressure 147/91 H 147/91 H O2 Sat by Pulse 99 Oximetry Pain: 0 - Precautions: Precautions: Fall Prevention, Cardiac/Pulmonary - Medications/Other Issues Comment: Denies pain - Consults Comment: Dr. Gonzalez - Skin Incision Site: midsternal, L medial knee Dressing Status: Clean, Dry, Intact Incision: Healing Well Incision Line Treatment: midsternal incision with dry dressing to abdominal drain sites. L medial knee incision healing well . STEPHANIE - Toileting Toileting: Contact Guard - Bladder Management Bladder Pattern: Normal - Bowel Management Bowel Pattern: Normal Bowel Management: Minimal Assistance - Transfers Transfers: Minimal Assistance - ADL's ADL's: Minimal Assistance - Pain Management Comments: Denies pain - Patient/Family Teaching Comments: Safety, cardiac - Goals/Time Frame Comments: per multidisplinary team - Provider Provider: Madiha Oglesby RN Physical Therapy - Bed Mobility Bed Mobility: Verbal Cues, Contact Guard - Transfers Sit to Stand: Supervision, Verbal Cues - Ambulation Level of Assistance: Supervision, Verbal Cues Distance (ft.): 150 Assistive Devices: Narrow base quad cane - Stair Negotiation Stairs: Level of Assistance: Supervision, Verbal Cues Stairs: Assistive Devices: Left Handrail - Standing Balance Static Stand: Contact Guard Assist Dynamic Stand: Minimal Assistance - Pain Management Techniques: Medication, Heat Comment: R low back/hip. Sternal incision sit - Insight/Carryover Insight/Carryover: Good - Patient/Family Education Comment: Sternal precautions, safety, d/c recommendations. Family training scheduled with pts son for 04/14/18 - Assessment/Plan Assessment: Pt currently performed bed mobility with CGA, transfers with Close S , gait with NBQC and close S, stair negotiation with CGA. Pt will continue to benefit from skilled PT interventions to address deficits, reduce fall risk, and maximize functional independence. Recommend d/c home with home PT and supervision for all functional mobility skills. - Goals Timeframe: 10 days Goals: Sit < > supine mod I. Sit < > stand transfers mod I. Pt will ambulate 250 ft mod I with NBQC. Pt will ascend/descend flight of stairs with handrails and supervision - Provider Therapist: Manisha Yousif PT, DPT License Number: [id number] Occupational Therapy - Arousal/Attention/Orientation Patient Orientation: Person, Place, Time, Appropriate to Age, Appropriate to Situation - ADL/IADL Self Feeding: Set-up Help Grooming: Set-up Help Bathing-Upper Extremity: Supervision Bathing-Lower Extremity: Supervision, Contact Guard Dressing-Upper Extremity: Set-up Help Dressing-Lower Extremity: Supervision - Sitting Balance Static Sitting: Supervision Dynamic Sitting: Requires supervision, Contact Guard Assist - Transfers Wheelchair to Bed Transfers: Supervision, Contact Guard Toilet Transfers: Supervision, Contact Guard - Wheelchair Management Level of Assistance: Supervision - Upper Extremity Status Right Upper Extremity Comment: WFL. slightly impaired FM coordinstion/ dexterity R hand Left Upper Extremity Comment: WFL - Pain Alleviating Techniques: Medication, Heat Comment: R low back/hip. Sternal incision sit - Insight/Carryover Insight/Carryover: Good - Patient/Family Education Comment: Sternal precautions, safety, d/c recommendations. Family training scheduled with pts son for 04/14/18 - Assessment/Plan Assessment: Pt currently performed bed mobility with CGA, transfers with Close S , gait with NBQC and close S, stair negotiation with CGA. Pt will continue to benefit from skilled PT interventions to address deficits, reduce fall risk, and maximize functional independence. Recommend d/c home with home PT and supervision for all functional mobility skills. - Goals Timeframe: 10 days Goals: Sit < > supine mod I. Sit < > stand transfers mod I. Pt will ambulate 250 ft mod I with NBQC. Pt will ascend/descend flight of stairs with handrails and supervision - Provider Therapist: ELIAN Hutchins/[facility] - Consult Information Patient on Program: Yes Medical Diagnosis: s/p CABG with acute CVA Treatment Diagnosis: minimal dysarthria - Assessment Comment: minimal dysarthria - Plan Assessment: Pt currently performed bed mobility with CGA, transfers with Close S , gait with NBQC and close S, stair negotiation with CGA. Pt will continue to benefit from skilled PT interventions to address deficits, reduce fall risk, and maximize functional independence. Recommend d/c home with home PT and supervision for all functional mobility skills. - Provider Therapist: Vilma Cardoso License Number: [id number] Recreational Therapy - Participation Participation: Participates in Individual and/or Group Sessions - Attendance Attendance: 3-5 times per week - Activities Leisure Activities: Cards and Games - Socialization Level of Socialization: Initiates/interacts freely with care givers and peer - Diversional Time Diversional Time: watches television, listens to music - Assessment Assessment/Plan: Pt currently performed bed mobility with CGA, transfers with Close S, gait with NBQC and close S, stair negotiation with CGA. Pt will continue to benefit from skilled PT interventions to address deficits, reduce fall risk, and maximize functional independence. Recommend d/c home with home PT and supervision for all functional mobility skills. - Provider Therapist: Frances Temple, MANAGER CLIENT #[id number] Nutrition - Current Diet Current Diet/ Supplement/ Feedings: 2 gram Na low fat/low cholesterol diet thin liquids - Appetite Percent Meal Consumed: 75-100% - Comments Comments: Safety, cardiac - Assessment/Goals/Time Frame Assessment/Goals/Time Frame: Denies pain - Provider Provider: Marge Aquino RD Case Management - Psychosocial Assessment Support Systems: Pt's son Eric [phone] is supportive and lives next door. Psychological Interventions/Needs: Pt is alert and oriented x3, Faroese speaking Discharge Concerns: Pt has 15 steps to negotiate Patient/Family Meeting: CM met with pt and rehab team using certified Faroese speaking blanching machine operator Vilma Girard Intervention/Goal/Outcome:: 1. Plan: Home with skilled homecare; Pt and family report they do not have a preference for skilled homecare agencies Date: 2. DME to be determined (pt may require a wchr -family also requesting; will require appropriate documentation to obtain) Son will order shower chair with back. Son to come in for caregiver training on Thursday04/12/18 at 1030AM. 3. GOAL : Intermitten supervision level; modified independent at [employer] level 4. Pt and son will apply for Medicaid upon pt's discharge. - Discharge Plan Discharge Plan: Home with services - Provider Provider: JAYCEE Gibbs, [facility] License Number: [id number] Rehabilitation Plan - Treatment Plan Treatment Plan: Physical Therapy, Occupational Therapy, Speech, Patient/Family Education - Recommendation Recommendation: Physical Therapy, Occupational Therapy, Speech, Patient/Family Education - Discharge Plan Discharge to: Home
--- NOTE | 2018-04-15 21:38 | CP.PCM.PN ---
Subjective - Date & Time of Evaluation Date of Evaluation: 04/14/18 Time of Evaluation: 20:10 - Subjective Subjective: no acute complaints Objective - Vital Signs/Intake and Output Vital Signs (last 24 hours): Temp Pulse Resp BP Pulse Ox 98.0 F 72 20 147/91 H 99 04/15/18 20:10 04/15/18 21:15 04/15/18 20:10 04/15/18 21:15 04/15/18 20:10 - Medications Medications: Current Medications Acetaminophen (Tylenol 325mg Tab) 650 mg PO Q6 PRN PRN Reason: pain,scale 4-6 Last Admin: 04/15/18 06:36 Dose: 650 mg Albuterol/Ipratropium (Duoneb 3 Mg/0.5 Mg (3 Ml) Ud) 3 ml INH RQ6 PRN PRN Reason: forshortnessof breath/wheezing Apixaban (Eliquis) 5 mg PO BID [facility] PRN Reason: Protocol Last Admin: 04/15/18 16:59 Dose: 5 mg Ascorbic Acid (Vitamin C 500 Mg Tab) 500 mg PO BID [facility] Last Admin: 04/15/18 16:59 Dose: 500 mg Aspirin (Ecotrin) 81 mg PO DAILY [facility] Last Admin: 04/15/18 08:05 Dose: 81 mg Atorvastatin Calcium (Lipitor) 80 mg PO HS [facility] Last Admin: 04/15/18 21:15 Dose: 80 mg Bacitracin (Bacitracin Oint) 1 applic TOP 0600 [facility] Last Admin: 04/15/18 06:38 Dose: 1 applic Bisacodyl (Dulcolax) 10 mg RC DAILY PRN PRN Reason: Constipation Docusate Sodium (Colace) 100 mg PO BID [facility] Last Admin: 04/15/18 16:59 Dose: Not Given Levothyroxine Sodium (Synthroid) 50 mcg PO DAILY@0630 [facility] Last Admin: 04/15/18 06:38 Dose: 50 mcg Metoprolol Tartrate (Lopressor) 50 mg PO Q12 [facility] Last Admin: 04/15/18 21:15 Dose: 50 mg Multivitamins/Minerals (Therapeutic-M Tab) 1 tab PO DAILY [facility] Last Admin: 04/15/18 08:06 Dose: 1 tab Pantoprazole Sodium (Protonix Ec Tab) 40 mg PO 0630 [facility] Last Admin: 04/15/18 06:38 Dose: 40 mg Sennosides (Senokot Tab) 17.2 mg PO HS [facility] Last Admin: 04/15/18 21:17 Dose: 17.2 mg - Labs Labs: 03/30/18 05:20 03/30/18 05:20 - Head Exam Head Exam: ATRAUMATIC, NORMAL INSPECTION, NORMOCEPHALIC - Eye Exam Eye Exam: EOMI, Normal appearance Pupil Exam: NORMAL ACCOMODATION, PERRL - Neck Exam Neck Exam: Normal Inspection - Respiratory Exam Respiratory Exam: Clear to Ausculation Bilateral, NORMAL BREATHING PATTERN - Cardiovascular Exam Cardiovascular Exam: REGULAR RHYTHM - GI/Abdominal Exam GI & Abdominal Exam: Rebound - Rectal Exam Rectal Exam: NORMAL INSPECTION - Exam External exam: NORMAL EXTERNAL EXAM - Extremities Exam Extremities Exam: Full ROM, Normal Capillary Refill, Normal Inspection - Back Exam Back Exam: NORMAL INSPECTION - Neurological Exam Neurological Exam: Alert, Awake Neuro motor strength exam: Left Upper Extremity: 3, Right Upper Extremity: 3, Left Lower Extremity: 3, Right Lower Extremity: 3 - Psychiatric Exam Psychiatric exam: Normal Affect, Normal Mood - Skin Skin Exam: Dry, Normal Color Assessment and Plan (1) Abnormal laboratory test result Status: Acute (2) Chest pain Status: Acute (3) Syncope Assessment & Plan: status post physical, occupational, rec and speech therapy status post team conference and Dc planning Status: Acute
[2018-04-16] MEDS: Levothyroxine 50 MCG TAB PO SCH (06:33)
[2018-04-16] MEDS: Pantoprazole 40 mg EC Tab PO SCH (06:33)
[2018-04-16] MEDS: Bacitracin OINT 15GM TOP SCH (06:34)
[2018-04-16 08:03] VITALS: PULSE 79; RESP 18; O2SAT 98
[2018-04-16] MEDS: Multivitamin With Minerals Tab PO SCH (08:28)
[2018-04-16 08:29] VITALS: BP 147/80
[2018-04-16] MEDS ORDERED: Oxycodone/Acetaminophen 5/325 mg Tab PO PRN (10:37)
--- NOTE | 2018-04-18 01:07 | CP.PCM.PN ---
Subjective - Date & Time of Evaluation Date of Evaluation: 04/13/18 Objective - Vital Signs/Intake and Output Vital Signs (last 24 hours): Temp Pulse Resp BP Pulse Ox 98.0 F 79 18 147/80 98 04/15/18 20:10 04/16/18 08:28 04/16/18 08:03 04/16/18 08:28 04/16/18 08:03 - Labs Labs: 03/30/18 05:20 03/30/18 05:20
--- NOTE | 2018-04-18 01:07 | CP.PCM.PN ---
Subjective - Date & Time of Evaluation Date of Evaluation: 04/14/18 Objective - Vital Signs/Intake and Output Vital Signs (last 24 hours): Temp Pulse Resp BP Pulse Ox 98.0 F 79 18 147/80 98 04/15/18 20:10 04/16/18 08:28 04/16/18 08:03 04/16/18 08:28 04/16/18 08:03 - Labs Labs: 03/30/18 05:20 03/30/18 05:20
--- NOTE | 2018-04-18 01:09 | CP.PCM.DIS ---
Provider - Provider Date of Admission: 03/29/18 19:05 Attending physician: Rose Mary Mcleod MD Time Spent in preparation of Discharge (in minutes): 25 Diagnosis - Discharge Diagnosis (1) Acute CVA (cerebrovascular accident) Status: Acute (2) Hemiparesis Status: Acute (3) S/P CABG (coronary artery bypass graft) Status: Acute (4) Pacemaker Status: Acute Hospital Course - Lab Results Lab Results: Most Recent Lab Values WBC 12.4 K/uL (4.8-10.8) H 03/30/18 05:20 RBC 4.17 Mil/uL (4.40-5.90) L 03/30/18 05:20 Hgb 12.4 g/dL (12.0-18.0) 03/30/18 05:20 Hct 36.6 % (35.0-51.0) 03/30/18 05:20 MCV 87.7 fl (80.0-94.0) 03/30/18 05:20 MCH 29.8 pg (27.0-31.0) 03/30/18 05:20 MCHC 33.9 g/dL (33.0-37.0) 03/30/18 05:20 RDW 15.1 % (11.5-14.5) H 03/30/18 05:20 Plt Count 290 K/uL (130-400) 03/30/18 05:20 Sodium 138 mmol/l (132-148) 03/30/18 05:20 Potassium 4.3 MMOL/L (3.6-5.0) 03/30/18 05:20 Chloride 102 mmol/L (98-107) 03/30/18 05:20 Carbon Dioxide 25 mmol/L (22-30) 03/30/18 05:20 Anion Gap 15 (10-20) 03/30/18 05:20 BUN 23 mg/dl (9-20) H 03/30/18 05:20 Creatinine 1.1 mg/dl (0.8-1.5) 03/30/18 05:20 Est GFR ( Amer) > 60 03/30/18 05:20 Est GFR (Non-Af Amer) > 60 03/30/18 05:20 POC Glucose (mg/dL) 111 mg/dL (65-110) H 03/30/18 16:31 Random Glucose 96 mg/dL (75-110) 03/30/18 05:20 Calcium 9.0 mg/dL (8.4-10.2) 03/30/18 05:20 Total Bilirubin 0.9 mg/dl (0.2-1.3) 03/30/18 05:20 AST 78 U/L (17-59) H D 03/30/18 05:20 ALT 94 U/L (21-72) H 03/30/18 05:20 Alkaline Phosphatase 139 U/L (38-126) H D 03/30/18 05:20 Total Protein 6.9 G/DL (6.3-8.2) 03/30/18 05:20 Albumin 3.4 g/dL (3.5-5.0) L 03/30/18 05:20 Globulin 3.4 gm/dL (2.2-3.9) 03/30/18 05:20 Albumin/Globulin Ratio 1.0 (1.0-2.1) 03/30/18 05:20 Triglycerides 154 mg/DL (0-149) H 03/30/18 05:20 Cholesterol 109 mg/dL (0-199) 03/30/18 05:20 LDL Cholesterol Direct 49 mg/dL (0-129) 03/30/18 05:20 HDL Cholesterol 20 MG/DL (30-70) L 03/30/18 05:20 Vitamin B12 602 pg/mL (239-931) 03/30/18 05:20 Free T4 0.97 ng/dL (0.78-2.19) 03/30/18 11:10 Free T3 pg/mL 3.33 pg/mL (2.77-5.27) 03/30/18 10:42 TSH 3rd Generation 17.50 mIU/ML (0.46-4.68) H 03/30/18 05:20 Discharge Exam - Head Exam Head Exam: ATRAUMATIC, NORMAL INSPECTION, NORMOCEPHALIC Discharge Plan - Follow Up Plan Condition: GOOD Disposition: HOME/ ROUTINE Instructions: Coronary Artery Bypass Grafting (DC), Recovery After Coronary Artery Bypass Graft Surgery (CABG), Apixaban, Ascorbic Acid, Aspirin, Atorvastatin, Levothyroxine, Metoprolol, Pantoprazole
--- NOTE | 2018-04-18 01:09 | CP.PCM.PN ---
Subjective - Date & Time of Evaluation Date of Evaluation: 04/15/18 Objective - Vital Signs/Intake and Output Vital Signs (last 24 hours): Temp Pulse Resp BP Pulse Ox 98.0 F 79 18 147/80 98 04/15/18 20:10 04/16/18 08:28 04/16/18 08:03 04/16/18 08:28 04/16/18 08:03 - Labs Labs: 03/30/18 05:20 03/30/18 05:20
--- NOTE | 2018-04-19 13:05 | CP.PCM.PN ---
Subjective - Date & Time of Evaluation Date of Evaluation: 04/15/18 Time of Evaluation: 19:00 - Subjective Subjective: no acute complaints at present Objective - Vital Signs/Intake and Output Vital Signs (last 24 hours): Temp Pulse Resp BP Pulse Ox 98.0 F 79 18 147/80 98 04/15/18 20:10 04/16/18 08:28 04/16/18 08:03 04/16/18 08:28 04/16/18 08:03 - Labs Labs: 03/30/18 05:20 03/30/18 05:20 - Head Exam Head Exam: ATRAUMATIC, NORMAL INSPECTION, NORMOCEPHALIC - Eye Exam Eye Exam: EOMI, Normal appearance Pupil Exam: NORMAL ACCOMODATION, PERRL - ENT Exam ENT Exam: Mucous Membranes Moist, Normal Exam - Neck Exam Neck Exam: Full ROM, Normal Inspection - Respiratory Exam Respiratory Exam: Clear to Ausculation Bilateral, NORMAL BREATHING PATTERN - Cardiovascular Exam Cardiovascular Exam: REGULAR RHYTHM - GI/Abdominal Exam GI & Abdominal Exam: Normal Bowel Sounds - Rectal Exam Rectal Exam: NORMAL INSPECTION - Exam External exam: NORMAL EXTERNAL EXAM - Extremities Exam Extremities Exam: Normal Capillary Refill - Back Exam Back Exam: NORMAL INSPECTION - Neurological Exam Neurological Exam: Alert, Awake Neuro motor strength exam: Left Upper Extremity: 3, Right Upper Extremity: 3, Left Lower Extremity: 3, Right Lower Extremity: 3 - Psychiatric Exam Psychiatric exam: Normal Affect, Normal Mood - Skin Skin Exam: Dry, Normal Color, Warm Assessment and Plan (1) Abnormal laboratory test result Status: Acute (2) Chest pain Status: Acute (3) Syncope Assessment & Plan: plan for range of motion, strengthening, transfers and gait training. Physical, occupational, rec , speech therapy . Family training, plan for DC home Status: Acute
--- NOTE | 2018-05-08 14:00 | DS ---
Copied To: Juan Jose Keen MD Attending MD: Juan Jose Keen MD PHYSIATRY DISCHARGE SUMMARY The patient was admitted on 03/29/2018 and discharged on 04/16/2018 to home. The patient did well during the rehab stay. The patient transported via family. At discharge, supervisions are modified independent level, to follow up with Dr. Kang, the patient's neurologist, also cardiothoracic physician along with primary medical physician to get home occupational therapy, physical therapy, home health aide, and to get narrow-based quad cane and commode. The patient participated in physical therapy, occupational therapy, and recreational therapy. For recreational therapy, participated in one-to-one group therapy sessions. The patient's ADLs, setup dressing, lower body supervision, functional mobility supervision, though independent for the patient. For physical therapy, the patient's mobility is modified independent, ambulation 200 feet, narrow-based quad cane. Juan Jose Keen MD
== END 2018-04-16 13:30 | disposition home health service (06) | DRG 57 ==
PROVIDERS: ADMIT Internal Medicine; ATTEND Internal Medicine
PROC: F07Z9FZ Gait Training/Functional Ambulation Treatment using Assistive, Adaptive, Supportive or Protective Equipment (ICD-10-PCS; principal; 2018-03-29)
PROC: F07M6FZ Therapeutic Exercise Treatment of Musculoskeletal System - Whole Body using Assistive, Adaptive, Supportive or Protective Equipment (ICD-10-PCS; 2018-03-29)
PROC: F08Z4FZ Home Management Treatment using Assistive, Adaptive, Supportive or Protective Equipment (ICD-10-PCS; 2018-03-29)
DX: I69.351 Hemiplegia and hemiparesis following cerebral infarction affecting right dominant side (principal); I10 Essential (primary) hypertension; F17.210 Nicotine dependence, cigarettes, uncomplicated; Z90.49 Acquired absence of other specified parts of digestive tract; Z95.0 Presence of cardiac pacemaker; Z95.1 Presence of aortocoronary bypass graft; R07.9 Chest pain, unspecified; R16.0 Hepatomegaly, not elsewhere classified; E11.9 Type 2 diabetes mellitus without complications; E78.00 Pure hypercholesterolemia, unspecified; E78.5 Hyperlipidemia, unspecified